=== PATIENT | female | born 1980 | race Hispanic/Latino ===

== ENCOUNTER 2018-02-14 02:23 | Emergency (ER) | payer OTHER, SELFPAY ==
[2018-02-14] VITALS (9 sets, daily range): BP systolic 104–143; BP diastolic 59–91; PULSE 98–125; RESP 16–20; TEMP 36.4–37.6; O2SAT 97–100; BMI 23.6
--- NOTE | 2018-02-14 02:37 | DI.CT.S_ITS ---
PROCEDURE: CT ABDOMEN PELVIS W CON INDICATIONS: Right lower quadrant Pain TECHNIQUE: After the administration of intravenous contrast, 5 mm thick sections acquired from the diaphragm to the symphysis. 5 mm coronal and sagittal reformats were acquired. For radiation dose reduction, the following was used: automated exposure control, adjustment of mA and/or kV according to patient size. COMPARISON: [facility], , US PELVIC COMPLETE, 02/14/2018, 5:18. FINDINGS: Image quality: Excellent. ABDOMEN: Lung bases: Lung bases are clear. Heart size is normal. Solid organs: Liver is normal in size and enhancement. Gallbladder is normal. Biliary system is non dilated. Pancreas enhances normally. Spleen is normal in size and enhancement. No adrenal nodules. Kidneys demonstrate normal size and enhancement, without hydronephrosis. Peritoneum and bowel: Bowel loops demonstrate normal wall thickness and caliber. Moderate amount of stool in colon. Appendix is normal. No free air. There is a small to moderate amount of free fluid. Nodes and vessels: No retroperitoneal or mesenteric adenopathy by size criteria. Aorta and inferior vena cava are normal in size. Miscellaneous: Tiny fat containing umbilical hernia is noted. PELVIS: Genitourinary: Bladder wall thickness is normal. Note is present within the uterus. Uterus is otherwise normal. A 1.5 x 1.9 cm cyst is noted in the left ovary. There is a moderate amount of free fluid in the cul-de-sac. Miscellaneous: No inguinal hernias or adenopathy. Bones: No suspicious bony lesions. No vertebral body compression fractures. IMPRESSION: 1. Normal appendix. 2. A 1.5 x 1.9 cm left ovarian cyst. There is small to moderate amount of free fluid in the cul-de-sac. The findings suggest ruptured ovarian cyst. 3. Tiny fat containing umbilical hernia. No significant discrepancy with the cnc machinist 2nd shift radiology preliminary report. Dictated by: Milton Aguiar M.D. on 02/14/2018 at 7:40 Approved by: Milton Aguiar M.D. on 02/14/2018 at 7:46
[2018-02-14 02:46] LABS: Pregnancy Test Serum,Qual Negative (Negative)
[2018-02-14 02:48] LABS: Lipase 87 U/L (23-300)
[2018-02-14 02:50] LABS: Add Manual Diff / Slide Review NO; Basophils Percent Auto 0.6 % (0-2); Eosinophils Percent Auto 0.6 % (2-4); Hematocrit 43.5 % (36-46); Hemoglobin 14.9 g/dL (12.0-16.0); Lymphocytes Percent Auto 15.5 % (25-40); Mean Corpuscular HGB Conc 34.2 % (30-36); Mean Corpuscular Hemoglobin 30.2 PG (26-34); Mean Corpuscular Volume 88.3 fL (80-100); Neutrophils Absolute Auto 8100 /uL (3000-5900); Neutrophils Percent Auto 81.3 % (50-75); Platelet Count 274 X10^3/uL (150-400); Red Blood Cell Count 4.92 X10^6/uL (4.0-5.2); Red Cell Distribution Width 14.1 % (11.6-14.8)
[2018-02-14 03:04] LABS: Alanine Aminotransferase 28 IU/L (9-52); Albumin 4.7 g/dL (3.5-5.0); Albumin Globulin Ratio 1.5 (1.0-2.8); Alkaline Phosphatase 62 U/L (38-126); Aspartate Aminotransferase 20 IU/L (14-36); BUN Creatinine Ratio 26.3 (6-22); Bilirubin Total 0.8 mg/dL (0.2-1.3); Blood Urea Nitrogen 21 mg/dL (7-17); Carbon Dioxide 22 mmol/L (22-32); Chloride 101 mmol/L (98-107); Estimated Glomerular Filt Rate > 60.0 mL/min (>60); Globulin 3.2 g/dL (1.7-4.1); Glucose 109 mg/dL (70-100); HEMOLYSIS < 15 (0-50); Potassium 4.1 mmol/L (3.4-5.1); Sodium 140 mmol/L (137-145); Total Protein 7.9 g/dL (6.3-8.2)
[2018-02-14] MEDS: SODIUM CHLORIDE 0.9% 1,000 ML 1000 ML IV (03:04)
[2018-02-14] MEDS: HYDROMORPHONE 0.5 MG INJ 1 MG IV ×2 (03:04→07:21)
[2018-02-14] MEDS: KETOROLAC 60 MG/2 ML VIAL 15 MG IV (03:07)
[2018-02-14] MEDS: HALOPERIDOL 5 MG/ML VIAL 1.5 MG IV (03:07)
[2018-02-14 03:39] LABS: Bacteria Urine None Seen; RBC Urine None Seen (0-5/HPF); WBC Urine None Seen (0-5/HPF)
[2018-02-14 03:46] LABS: Appearance Urine UA CLEAR; Bilirubin Urine UA NEGATIVE (NEGATIVE); Color Urine UA YELLOW; Glucose Urine UA NEGATIVE (Normal); Ketones Urine UA 2+ (NEGATIVE); Leukocyte Esterase Urine UA NEGATIVE (NEGATIVE); Nitrite Urine UA Negative (Negative); Occult Blood Urine UA NEGATIVE (Negative); Protein Urine UA NEGATIVE (Negative); Urobilinogen Urine UA 0.2 E.U./dL (0.2)
[2018-02-14 03:57] LABS: Culture Indicated Urine Cult Not Indicated; Urine Comments Microscopic Normal
--- NOTE | 2018-02-14 04:39 | DI.US.S_ITS ---
PROCEDURE: US PELVIC COMPLETE INDICATIONS: PAIN TECHNIQUE: Real-time scanning was performed of the pelvic organs, with image documentation. Additional endovaginal scanning was necessary due to incomplete visualization of the adnexal and endometrial structures by transabdominal scanning. COMPARISON: [facility], CT, CT ABDOMEN PELVIS W CON, 02/14/2018, 2:44. FINDINGS: Transabdominal scanning: Limited scanning through the kidneys shows no hydronephrosis. Small amount of free abdominal or pelvic fluid. Endovaginal scanning: Uterus: Uterus is normal in size at 8.5 x 4.2 x 4.9 cm. The endometrium is not visualized secondary to a presence of IUD. Ovaries: Right ovary is not visualized. The left ovary measures 4.5 x 2.5 x 5 cm. There is a 2.4 x 2.0 x 2.2 cm solid appearing mass with peripherally increased vascularity in the left ovary. IMPRESSION: 1. A 2.4 x 2.0 x 2.2 cm solid appearing mass demonstrating peripherally increased vascularity, probably a corpus pseudocyst. Followup ultrasound in 6 weeks is suggested. 2. There is a small amount of free fluid. 3. IUD in uterus. No significant discrepancy with the transit mechanic radiology preliminary report. Dictated by: Milton Aguiar M.D. on 02/14/2018 at 7:57 Approved by: Milton Aguiar M.D. on 02/14/2018 at 8:05
--- NOTE | 2018-02-14 06:53 | ED_ITS ---
HPI - Abdominal Pain General Chief Complaint: Abdominal Pain Stated Complaint: ABD Pain History of Present Illness HPI narrative: HPI 37-year-old female presents for evaluation of one day of periumbilical pain that is been gradually worsening, accompanied by anorexia for one half day, and is without identifiable provoking or relieving symptoms. Patient believes her pain began after she was straining to move the chicken coop or other yard items 2 days ago. Patient denies fever, chills, dysuria, continues pass flatus and stool at baseline. M/S/F/SocHx notable for: please see HPI; remainder reviewed with patient and in chart. ROS: Negative constitutional, eye, cardiovascular, pulmonary, GI, , MSK, skin , neurologic, psychiatric, endocrine unless noted in the HPI. Exam Gen: pleasant, uncomfortable appearing, intermittently crying out and tearful, loquacious. HEENT: NC, AT, PEERL, EOMI. Resp: Clear to auscultation bilaterally, normal work of breathing, no accessory muscle usage. Card: Regular rate and rhythm with no murmurs, rubs, or gallops, extremities warm and well perfused. GI: mild diffuse turns palpation, greatest at the umbilicus, mild to moderate right lower quadrant tenderness palpation, no rebound, no guarding. : No suprapubic tenderness to palpation. MSK: No visible deformities, strength and tone without visually appreciable deficit. Skin: Normal color with no visible lesions. Neuro: AO x 3, no facial asymmetry, vision and hearing WNL. Psych: Mood and affect appropriate. Labs / Imaging: WBC 10.0, Hb 14.9, sodium 140, potassium 4.1, total bilirubin 0.8, AST 20, ALT 20, ALT 62, lipase 87, negative hCG UA - 2+ ketones, negative nitrate, negative leukocyte esterase, no bacteria. CT abdomen/pelvis: there is a 2.3 cm cyst the left ovary with adjacent free fluid. There is an IUD in the uterus. TV US: only a single ovary identified which contains small follicles and what may be a collapsing corpus luteum. There is a trace amount of free fluid. It is unclear if this is the right ovary or if the patient is mistaken about having a right Oopherectomy. There is an IUD in the uterus. MDM Previous chart, nursing note, labs, imaging, and vitals reviewed. A: 37-year-old female presents for evaluation of one day of periumbilical pain that is been gradually worsening, accompanied by anorexia for one half day, and is without identifiable provoking or relieving symptoms. DDx: UTI, ureterolithiasis, pyelonephritis, appendicitis, biliary disease, pancreatitis, hemorrhagic ovarian cyst, ovarian torsion, ectopic . Evaluation: UA without evidence infection, negative hCG, imaging notable for a 2.3 cm cyst in the left ovary with adjacent free fluid. Strongly suspect hemorrhagic ovarian cyst. Torsion cannot be definitively excluded. Given the amount of the patient's discomfort transvaginal ultrasound was ordered, this was without evidence of torsion, there was a discrepancy noted between the lateral reality of the ovarian cyst between the CT and ultrasound, the patient' s case was discussed with the interpreting radiologist, Dr. Davenport, comment the images were reviewed and the cyst is felt to be on the left ovary and most likely hemorrhagic in nature. ED Course: hemodynamically stable. Disposition: discharge with [employer] follow-up for further review of the atypical description of her cyst, [place] Rx provided. Return to care precautions provided. Impression: cyst, likely hemorrhagic (please reference below for remainder of encounter information) Related Data Home Medications Medication Instructions Recorded Confirmed cholecalciferol (vitamin D3) 2,000 unit PO #0 04/12/17 [Vitamin D3] glucosamine sulfate [Gabrielle] 750 mg PO #0 04/12/17 melatonin 10 mg PO HS #0 10/09/17 Previous Rx's Medication Instructions Recorded Disabled Parking Permit ea #1 04/13/17 penicillin V potassium 500 mg PO BID #20 tab 10/30/17 azithromycin [Zithromax] 250 mg OR QDAY #1 pac 11/14/17 cyclobenzaprine 10 mg PO BIDP PRN #60 mg 01/17/18 ibuprofen 600 mg PO BIDP PRN #60 tab 01/17/18 Allergies Allergy/AdvReac Type Severity Reaction Status Date / Time bupivacaine Allergy Unknown asverse Unverified 11/22/17 12:39 [From EXPAREL (PF)] reaction morphine [MORPHINE] Allergy Unknown ITCHING Unverified 11/22/17 12:39 PFSH Surgical History Status post laminectomy (11/22/16) Family History Brother Age: 40 Mental health problem Grandfather Hypertension High cholesterol Grandfather Heart disease Exam Initial Vital Signs Initial Vital Signs: Vital Signs Temperature 97.6 F 02/14/18 02:29 Pulse Rate 98 H 02/14/18 02:29 Respiratory Rate 18 02/14/18 02:29 Blood Pressure 143/91 H 02/14/18 02:29 Pulse Oximetry 98 02/14/18 02:29 Course Orders Ordered: ED Orders 02/14/18 02:15 CMP [Comprehensive Metabolic Panel] Stat Complete Blood Count AUTO DIFF Stat Lipase Stat Test Serum,Qual Stat 02/14/18 02:37 CT abdomen pelvis w con Stat 02/14/18 03:29 Urinalysis and Microscopic Stat 02/14/18 04:39 US pelvic complete Stat Discontinued Medications Haloperidol (Haldol) 1.5 mg IV NOW ONE Stop: 02/14/18 02:37 Last Admin: 02/14/18 03:07 Dose: 1.5 mg Hydromorphone HCl (Dilaudid) 1 mg IV NOW ONE Stop: 02/14/18 02:37 Last Admin: 02/14/18 03:04 Dose: 1 mg Sodium Chloride (Normal Saline 0.9%) 1,000 mls @ 1,000 mls/hr IV BOLUS ONE Stop: 02/14/18 03:35 Last Infusion: 02/14/18 04:08 Dose: 0 mls/hr Admin: 02/14/18 03:04 Dose: 1,000 mls/hr Ketorolac Tromethamine (Toradol) 15 mg IV NOW ONE Stop: 02/14/18 02:37 Last Admin: 02/14/18 03:07 Dose: 15 mg Vital Signs - 8 hr 02/14/18 02:29 Temperature 97.6 F Pulse Rate 98 H Respiratory Rate 18 Blood Pressure 143/91 H Pulse Oximetry 98 MDM - Abdominal Pain Lab Data Result diagrams: 02/14/18 02:15 02/14/18 02:15 Lab Results 02/14/18 02/14/18 02/14/18 Range/Units 02:15 02:15 02:15 WBC 10.0 (4.5-11.0) X10^3/uL RBC 4.92 (4.0-5.2) X10^6/uL Hgb 14.9 (12.0-16.0) g/dL Hct 43.5 (36-46) % MCV 88.3 (80-100) fL MCH 30.2 (26-34) PG MCHC 34.2 (30-36) % RDW 14.1 (11.6-14.8) % Plt Count 274 (150-400) X10^3/uL Neut % (Auto) 81.3 H (50-75) % Lymph % (Auto) 15.5 L (25-40) % [place] % (Auto) 2.0 L (3-14) % Eos % (Auto) 0.6 L (2-4) % Baso % (Auto) 0.6 (0-2) % Neut # (Auto) 8100 H (1927-8163) /uL Sodium (137-145) mmol/L Potassium (3.4-5.1) mmol/L Chloride (98-107) mmol/L Carbon Dioxide (22-32) mmol/L BUN (7-17) mg/dL Creatinine (0.52-1.04) mg/dL Estimated GFR (>60) mL/min BUN/Creatinine Ratio (6-22) Glucose (70-100) mg/dL Calcium (8.4-10.2) mg/dL Total Bilirubin (0.2-1.3) mg/dL AST (14-36) IU/L ALT (9-52) IU/L Alkaline Phosphatase (38-126) U/L Total Protein (6.3-8.2) g/dL Albumin (3.5-5.0) g/dL Globulin (1.7-4.1) g/dL Albumin/Globulin Ratio (1.0-2.8) Lipase 87 (23-300) U/L Serum , Qual Negative (Negative) Urine Color Urine Appearance Urine pH (4.5-8.0) Ur Specific [place] (1.000-1.035) Urine Protein (Negative) Urine Glucose (UA) (Normal) g/dL Urine Ketones (NEGATIVE) Urine Occult Blood (Negative) Urine Nitrate (Negative) Urine Bilirubin (NEGATIVE) Urine Urobilinogen (0.2) E.U./dL Ur Leukocyte Esterase (NEGATIVE) Urine RBC (0-5/HPF) Urine WBC (0-5/HPF) Urine Bacteria (None) Ur Culture Indicated? Micro UA Comment 02/14/18 02/14/18 Range/Units 02:15 03:29 WBC (4.5-11.0) X10^3/uL RBC (4.0-5.2) X10^6/uL Hgb (12.0-16.0) g/dL Hct (36-46) % MCV (80-100) fL MCH (26-34) PG MCHC (30-36) % RDW (11.6-14.8) % Plt Count (150-400) X10^3/uL Neut % (Auto) (50-75) % Lymph % (Auto) (25-40) % [place] % (Auto) (3-14) % Eos % (Auto) (2-4) % Baso % (Auto) (0-2) % Neut # (Auto) (9231-4093) /uL Sodium 140 (137-145) mmol/L Potassium 4.1 (3.4-5.1) mmol/L Chloride 101 (98-107) mmol/L Carbon Dioxide 22 (22-32) mmol/L BUN 21 H (7-17) mg/dL Creatinine 0.80 (0.52-1.04) mg/dL Estimated GFR > 60.0 (>60) mL/min BUN/Creatinine Ratio 26.3 H (6-22) Glucose 109 H (70-100) mg/dL Calcium 10.0 (8.4-10.2) mg/dL Total Bilirubin 0.8 (0.2-1.3) mg/dL AST 20 (14-36) IU/L ALT 28 (9-52) IU/L Alkaline Phosphatase 62 (38-126) U/L Total Protein 7.9 (6.3-8.2) g/dL Albumin 4.7 (3.5-5.0) g/dL Globulin 3.2 (1.7-4.1) g/dL Albumin/Globulin Ratio 1.5 (1.0-2.8) Lipase (23-300) U/L Serum , Qual (Negative) Urine Color Yellow Urine Appearance Clear Urine pH 5.0 (4.5-8.0) Ur Specific [place] 1.010 (1.000-1.035) Urine Protein Negative (Negative) Urine Glucose (UA) Negative (Normal) g/dL Urine Ketones 2+ H (NEGATIVE) Urine Occult Blood Negative (Negative) Urine Nitrate Negative (Negative) Urine Bilirubin Negative (NEGATIVE) Urine Urobilinogen 0.2 (0.2) E.U./dL Ur Leukocyte Esterase Negative (NEGATIVE) Urine RBC None seen (0-5/HPF) Urine WBC None seen (0-5/HPF) Urine Bacteria None seen (None) Ur Culture Indicated? Cult not indicated Micro UA Comment Microscopic normal Discharge Plan Departure Prescriptions: No Action glucosamine sulfate [Gabrielle] 750 MG tablet 750 mg PO Qty: 0 RF: 0 cholecalciferol (vitamin D3) [Vitamin D3] 2,000 UNIT capsule 2,000 unit PO Qty: 0 RF: 0 Disabled Parking Permit Qty: 1 RF: 0 melatonin 10 MG capsule 10 mg PO HS Qty: 0 RF: 0 penicillin V potassium 500 MG tablet 500 mg PO BID Qty: 20 RF: 0 azithromycin [Zithromax] 250 MG tablet 250 mg OR QDAY Qty: 1 RF: 0 ibuprofen 600 mg tablet 600 mg PO BIDP PRNQty: 60 RF: 0 cyclobenzaprine 10 mg tablet 10 mg PO BIDP PRNQty: 60 RF: 1
[2018-02-14 07:22] LABS: Add Manual Diff / Slide Review NO; Basophils Percent Auto 0.3 % (0-2); Hematocrit 42.4 % (36-46); Hemoglobin 14.3 g/dL (12.0-16.0); Lymphocytes Percent Auto 7.8 % (25-40); Mean Corpuscular HGB Conc 33.8 % (30-36); Mean Corpuscular Hemoglobin 30.1 PG (26-34); Mean Corpuscular Volume 89.2 fL (80-100); Monocytes Percent Auto 1.3 % (3-14); Neutrophils Absolute Auto 7100 /uL (3000-5900); Neutrophils Percent Auto 90.6 % (50-75); Platelet Count 233 X10^3/uL (150-400); Red Blood Cell Count 4.75 X10^6/uL (4.0-5.2); Red Cell Distribution Width 14.1 % (11.6-14.8); White Blood Cell Count 7.8 X10^3/uL (4.5-11.0)
[2018-02-14] MEDS: ACETAMINOPHEN 325 MG TABLET 650 MG PO (08:40)
== END 2018-02-14 09:40 | disposition home or self-care (01) ==
PROVIDERS: Emergency Provider Emergency Medicine; Family Provider Family Medicine; PCP Family Medicine
DX: N83.202 Unspecified ovarian cyst, left side (principal)
CPT/HCPCS: 36415; 74177; 76830; 76856; 80053; 81001; 83690; 84703; 85025; 96361; 96374; 96375; 99283; 99285; J1170; J1630; J1885; Q9967

== ENCOUNTER 2018-04-09 09:45 | Outpatient (RCR) | payer OTHER, SELFPAY ==
--- NOTE | 2017-12-13 10:07 | PT.OTN ---
Current Diagnoses Pain in left knee (12/13/17) Difficulty in walking, not elsewhere classified (12/13/17) Weakness (12/13/17) On December 12, 2017 our therapy services consisting of Speech, Occupational, and Physical therapy transitioned from [employer] electronic documentation system to a new [employer] electronic system. All documentation prior to December 12 can be found under [employer] saved data. From December 12 forward, all medical record documentation will be in [email or web address].
--- NOTE | 2017-12-13 11:51 | PT.OTN ---
Current Diagnoses Pain in left knee (12/13/17) Difficulty in walking, not elsewhere classified (12/13/17) Weakness (12/13/17) Physical Therapy Treatment Note PT-OP-A Visit Information Start: 12/13/17 10:14 Freq: Status: Active Protocol: Activity Type Activity Date Activity User E-Sign Co-Sign Detail Recorded Client Recorded Date Recorded By Document 12/13/17 11:10 GGD [email or web address] 12/13/17 11:13 GGD 12/13/17 11:10 Out-Patient Physical Therapy Visit Information [Visit Information] -Visit Type Treatment Note -Visit Note 06/06 auth visit -Visit Start Time 10:25 -Visit Stop Time 11:20 -Total Visit Minutes 50 -Visit Number 10 -Number of CUT PRESSMAN Visits 1 [Evaluation Information] -Evaluation Date 10/25/17 PT-OP-C Subjective Start: 12/13/17 10:14 Freq: Status: Active Protocol: Activity Type Activity Date Activity User E-Sign Co-Sign Detail Recorded Client Recorded Date Recorded By Document 12/13/17 11:16 GGD [email or web address] 12/13/17 11:18 GGD 12/13/17 11:16 OP-PT Subjective [Patient Comments] -Patient Comments Patient states that she had a busy day of errands yesterday. She had increase in pain and need to use cane. Overall, her knee is doing better with less pain and did fatigue with increase in activity. -Patient Reported Progress Improving OP-PT Pain Assessment [Pain Assessment Grid] -Paper Pain Assessment Grid Completed No [Location] Bilateral -Pain Location Details Lumbar spine -Intensity 4 -Scale Used Numeric (1 - 10 ) -Description Aching -Pain Aggravating Factors Activity -Pain Alleviating Factors Cold PT-OP-Q Treatments Start: 12/13/17 10:14 Freq: Status: Active Protocol: Activity Type Activity Date Activity User E-Sign Co-Sign Detail Recorded Client Recorded Date Recorded By Document 12/13/17 11:37 GGD [email or web address] 12/13/17 11:51 GGD 12/13/17 11:37 Cardio Equipment [Bicycle (Upright)] -Duration (Minutes) 10 -Resistance 7 Gym Equipment [Shuttle Recovery] Unilateral Heel Raises -Resistance 25# -Shuttle Recovery Platform Stable -Reps/Time 2 x 5 Bilateral Heel Raises -Resistance 37# -Shuttle Recovery Platform Stable -Reps/Time 10 Unilateral Squats -Resistance 50# -Shuttle Recovery Platform Stable -Reps/Time 15 Bilateral Squats -Resistance 50# -Shuttle Recovery Platform Stable -Reps/Time 15 Therapeutic Exercises [Supine Exercises] 1 -Supine Exercise Name Flexion SLR -Side bilateral -Resistance 1# -Equipment Used ankle weight -Reps/Minutes 10 [Prone Exercises] 1 -Prone Exercise Name Hip extension -Side bilateral -Resistance 1# -Equipment Used Ankle weight -Reps/Minutes 10 -Comments with pillow under hips [Sidelying Exercises] 2 -Sidelying Exercise Name Hip Adduction -Side bilateral -Resistance 1# -Equipment Used ankle weight -Reps/Minutes 10 1 -Sidelying Exercise Name hip Abduction -Side bilateral -Resistance 1# -Equipment Used ankle weight -Reps/Minutes 10 PT-OP-R Modalities Start: 12/13/17 10:14 Freq: Status: Active Protocol: Activity Type Activity Date Activity User E-Sign Co-Sign Detail Recorded Client Recorded Date Recorded By Document 12/13/17 11:37 GGD [email or web address] 12/13/17 11:51 GGD 12/13/17 11:37 Hot Pack/Cold Pack [Treatment] Cold Pack -Location Left knee and L /S -Patient Position Hooklying -Treatment Duration (minutes) 10 -Patient Tolerance Good PT-OP-T Assessment and Plan Start: 12/13/17 10:14 Freq: Status: Active Protocol: Activity Type Activity Date Activity User E-Sign Co-Sign Detail Recorded Client Recorded Date Recorded By Document 12/13/17 11:37 GGD [email or web address] 12/13/17 11:51 GGD 12/13/17 11:37 Physical Therapy Assessment [Assessment Summary] -Assessment Pt improving with flexion strength and exercise tolerance. She fatigued quickly with calf raise and hip abduction and need cues for technique. Physical Therapy Plan [Frequency and Duration] -Frequency of Treatment 2x/Week -Duration of Treatment 3 months -Plan of Care Start Date 11/25/17 -Plan of Care End Date 01/22/18 [Next Visit Focus/Plan] -Next Visit Plan Progression under current plan. Tape of left knee with kinesiotape as needed, progress hip strengthening.
--- NOTE | 2017-12-21 16:26 | PT.OTN ---
Current Diagnoses Pain in left knee (12/21/17) Difficulty in walking, not elsewhere classified (12/21/17) Weakness (12/21/17) Physical Therapy Treatment Note PT-OP-A Visit Information Start: 12/13/17 10:14 Freq: Status: Active Protocol: Document 12/21/17 16:19 SAK (Rec: 12/21/17 16:26 SAK [id number]) Out-Patient Physical Therapy Visit Information Visit Information Visit Type Treatment Note Visit Note 07/07 auth visit Visit Start Time 10:25 Visit Stop Time 11:20 Total Visit Minutes 45 Visit Number 11 Number of BUSINESS OPERATIONS COORDINATOR Visits 0 PT-OP-C Subjective Start: 12/13/17 10:14 Freq: Status: Active Protocol: Document 12/21/17 14:36 SAK (Rec: 12/21/17 14:55 SAK [id number]) OP-PT Subjective Patient Comments Patient Comments Saw cco & president Dr. Stewart, recomended modified AFO; received 2 days ago. Recommended EMG be done by Dr. Stewart 12/14/17), cancel appointments in [place]. Has follow-up with neurology . Wore AFO a little, helps with walking though hurts heel . PT-OP-Q Treatments Start: 12/13/17 10:14 Freq: Status: Active Protocol: Document 12/21/17 14:56 SAK (Rec: 12/21/17 15:14 SAK [id number]) Cardio Equipment Bicycle (Upright) Duration (Minutes) 10 Resistance 7 Gym Equipment Shuttle Recovery Unilateral Heel Raises Resistance 25# Shuttle Recovery Platform Stable Reps/Time 2 x 5 Bilateral Heel Raises Resistance 37# Shuttle Recovery Platform Stable Reps/Time 10 Unilateral Squats Resistance 50# Shuttle Recovery Platform Stable Reps/Time 15 Bilateral Squats Resistance 62 Shuttle Recovery Platform Stable Reps/Time 15 PT-OP-R Modalities Start: 12/13/17 10:14 Freq: Status: Active Protocol: Document 12/13/17 11:37 GGD (Rec: 12/13/17 11:51 GGD [email or web address]) Hot Pack/Cold Pack Treatment Cold Pack Location Left knee and L/S Patient Position Hooklying Treatment Duration (minutes) 10 Patient Tolerance Good PT-OP-T Assessment and Plan Start: 12/13/17 10:14 Freq: Status: Active Protocol: Document 12/21/17 16:19 SAK (Rec: 12/21/17 16:26 [facility] [id number]) Physical Therapy Assessment Assessment Summary Assessment Patient demonstrated improved gait with new AFO. Instructed her in a wearing schedule and encouraged her to contact quarantine officer if heel pain worsens or she notices any skin breakdown. Physical Therapy Plan Frequency and Duration Frequency of Treatment 2x/Week Duration of Treatment 3 months Plan of Care Start Date 10/25/17 Plan of Care End Date 01/22/18 Next Visit Focus/Plan Next Visit Plan Continue to progress with ther ex as tolerated for strengthening and pain management. (no kinesiotape today due to patient reporting minimal knee pain).
--- NOTE | 2017-12-26 11:28 | PT.OTN ---
Current Diagnoses Pain in left knee (12/26/17) Difficulty in walking, not elsewhere classified (12/26/17) Weakness (12/26/17) Physical Therapy Treatment Note PT-OP-A Visit Information Start: 12/13/17 10:14 Freq: Status: Active Protocol: Document 12/26/17 10:31 SAK (Rec: 12/26/17 11:16 [facility] [id number]) Out-Patient Physical Therapy Visit Information Visit Information Visit Type Treatment Note Visit Note 08/06 [facility] Visit Start Time 10:25 Visit Stop Time 11:20 Total Visit Minutes 45 Visit Number 12 Evaluation Information Evaluation Date 10/25/17 PT-OP-C Subjective Start: 12/13/17 10:14 Freq: Status: Active Protocol: Document 12/26/17 10:31 SAK (Rec: 12/26/17 11:16 [facility] [id number]) OP-PT Subjective Patient Comments Patient Comments Pain much less wearing AFO in hip back, and knees. Longest wear time so far 3 hours at a time; heel very tender but silicone sleeve helpful. Has just started driving with AFO on just in town, not highway driving. sees Neurologist 01/03. PT-OP-Q Treatments Start: 12/13/17 10:14 Freq: Status: Active Protocol: Document 12/26/17 10:31 SAK (Rec: 12/26/17 11:16 [facility] [id number]) Cardio Equipment Bicycle (Upright) Duration (Minutes) 10 Resistance 7 Gym Equipment Shuttle Recovery Unilateral Heel Raises Resistance 25# Shuttle Recovery Platform Stable Reps/Time 2 x 5 Bilateral Heel Raises Resistance 37# Shuttle Recovery Platform Stable Reps/Time 10 Unilateral Squats Resistance 50# Shuttle Recovery Platform Stable Reps/Time 15 Bilateral Squats Resistance 62 Shuttle Recovery Platform Stable Reps/Time 15 Shuttle Balance 1 Details bal and weight shift Reps/Duration 10 min Comments front/back, side to side Therapeutic Exercises Sitting Exercises 1 Sitting Exercise Name Baps board Side right Equipment Used Baps Reps/Minutes 10 ea direction Standing Exercises 1 Standing Exercise Name RAMÓN Plascencia Neuro Re-Education Treatment Balance Activities 1 Details SLS, tandem stand, tandem walk Surface level Reps/Duration 6 min Comments no AFO PT-OP-R Modalities Start: 12/13/17 10:14 Freq: Status: Active Protocol: Document 12/13/17 11:37 GGD (Rec: 12/13/17 11:51 GGD [email or web address]) Hot Pack/Cold Pack Treatment Cold Pack Location Left knee and L/S Patient Position Hooklying Treatment Duration (minutes) 10 Patient Tolerance Good PT-OP-T Assessment and Plan Start: 12/13/17 10:14 Freq: Status: Active Protocol: Document 12/26/17 11:25 SAK (Rec: 12/26/17 11:28 SAK [id number]) Physical Therapy Assessment Assessment Summary Assessment Pain significantly decreased with use of AFO. Able to progress with standing balance activities. Muscle atrophy still present between metatarsals with continued curling of toes with functional standing plantarflexion with gait. Physical Therapy Plan Frequency and Duration Frequency of Treatment 2x/Week Duration of Treatment 3 months Plan of Care Start Date 10/25/17 Plan of Care End Date 01/22/18 Next Visit Focus/Plan Next Visit Plan Transition toward discharge over the next couple weeks pending recommendations of neurologist visit 01/03/18.
--- NOTE | 2018-01-02 14:16 | PT.OTN ---
Current Diagnoses Pain in left knee (01/02/18) Difficulty in walking, not elsewhere classified (01/02/18) Weakness (01/02/18) Physical Therapy Treatment Note PT-OP-A Visit Information Start: 12/13/17 10:14 Freq: Status: Active Protocol: Document 01/02/18 10:37 SAK (Rec: 01/02/18 14:12 SAK [id number]) Out-Patient Physical Therapy Visit Information Visit Information Visit Type Treatment Note Visit Note Visit Start Time 11:00 Visit Stop Time 11:45 Total Visit Minutes 45 Visit Number 13 Number of LAYER OFF Visits 0 PT-OP-C Subjective Start: 12/13/17 10:14 Freq: Status: Active Protocol: Document 01/02/18 10:37 SAK (Rec: 01/02/18 11:08 SAK [id number]) OP-PT Subjective Patient Comments Patient Comments Overall better but had some some stabbing pain after taking longest walk she has taken (25 min) medial joint lline PT-OP-Q Treatments Start: 12/13/17 10:14 Freq: Status: Active Protocol: Document 01/02/18 10:37 SAK (Rec: 01/02/18 11:08 SAK [id number]) Cardio Equipment Elliptical Duration (Minutes) 5 Resistance 1.0 Bicycle (Upright) Duration (Minutes) 10 Resistance 7 Gym Equipment Shuttle Recovery Unilateral Heel Raises Resistance 25# Shuttle Recovery Platform Stable Reps/Time 2 x 5 Bilateral Heel Raises Resistance 37# Shuttle Recovery Platform Stable Reps/Time 10 Unilateral Squats Resistance 50# Shuttle Recovery Platform Stable Reps/Time 15 Bilateral Squats Resistance 62 Shuttle Recovery Platform Stable Reps/Time 15 Shuttle Balance 1 Details bal and weight shift Reps/Duration 10 min Comments front/back, side to side Therapeutic Exercises Sitting Exercises 2 Sitting Exercise Name hamstring curl Side bilateral Resistance 30 Comments 20# unilateral 1 Sitting Exercise Name Baps board Side right Equipment Used Baps Reps/Minutes 10 ea direction Standing Exercises 2 Standing Exercise Name quad stretch Reps/Minutes 3 1 Standing Exercise Name BOSU lunge, BOSU bal PT-OP-R Modalities Start: 12/13/17 10:14 Freq: Status: Active Protocol: Document 12/13/17 11:37 GGD (Rec: 12/13/17 11:51 GGD [email or web address]) Hot Pack/Cold Pack Treatment Cold Pack Location Left knee and L/S Patient Position Hooklying Treatment Duration (minutes) 10 Patient Tolerance Good PT-OP-T Assessment and Plan Start: 12/13/17 10:14 Freq: Status: Active Protocol: Document 01/02/18 10:37 ALEX (Rec: 01/02/18 14:12 ALEX [id number]) Physical Therapy Assessment Assessment Summary Assessment Improving activity tolerance. Patient self-taped knee with good results over weekend so no taping by PT required. Moving toward discharge; has 1 further PT visit left pending results of appointment with neurologist tomorrow Physical Therapy Plan Frequency and Duration Frequency of Treatment 2x/Week Duration of Treatment 3 months Plan of Care Start Date 10/25/17 Plan of Care End Date 01/22/18 Next Visit Focus/Plan Next Visit Plan Transition toward discharge over the next couple weeks pending recommendations of neurologist visit 01/03/18. Please Sign and Return: I have reviewed this Plan of Care and certify that the skilled therapy services above are required to meet the patient???s needs. Physician Signature Date Printed Name and Credentials Clinical Instructor Signature Printed Name and Credentials
--- NOTE | 2018-01-10 17:13 | PT.OTN ---
Current Diagnoses Pain in right hip (01/09/18) Pain in left knee (01/09/18) Difficulty in walking, not elsewhere classified (01/09/18) Weakness (01/09/18) Physical Therapy Treatment Note PT-OP-A Visit Information Start: 12/13/17 10:14 Freq: Status: Active Protocol: Document 01/09/18 10:33 SAK (Rec: 01/10/18 16:40 SAK [id number]) Out-Patient Physical Therapy Visit Information Visit Information Visit Type Treatment Note Visit Note Visit Start Time 10:30 Visit Stop Time 11:15 Total Visit Minutes 45 Visit Number 14 Number of CAREER MANAGER Visits 0 Evaluation Information Evaluation Date 10/25/17 PT-OP-B Current Condition Start: 12/13/17 10:14 Freq: Status: Active Protocol: Document 01/09/18 10:33 SAK (Rec: 01/10/18 16:55 SAK [id number]) Current Condition History of Current Condition Onset Date 11/22/16 Current Complaints left knee pain due to compensation from right LE weakness History of Current Condition Patient underwent L45 laminectomy, microdiscectomy and decompression by Dr. Correa 11/28/17, with subsequent right LE weakness, atrophy, gait dysfunction. Post-op PT previously This round of PT (14 visits so far) has focused on left knee pain from compensatory movements due to right LE weakness. Now with minimal left knee pain especially after obtaining AFO for right LE ordered by Dr. Stewart. Patient also experiences pain in the sole of the foot with gait, wears gelt pad right foot. New order received from Dr. Stewart due to new c/o right sided hip/buttock pain. Patient has recently increased her walking and overall activity level due to improved gait with use of AFO but now is c/o above pain. Pain is worse without AFO and patient c/o concern she may always have to wear the AFO and this is very upsetting to her. 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 Future Testing and Treatments Planned Felicita Rice DO ordered an MRI lumbar sacral plexus with and without contrast scheduled for 01/14/18. PT-OP-C Subjective Start: 12/13/17 10:14 Freq: Status: Active Protocol: Document 01/09/18 10:33 SAK (Rec: 01/09/18 12:04 [facility] [id number]) OP-PT Subjective Patient Comments Patient Comments 5 days of right sided confusing pain, hurts even at night. Better with brace on, worse when off. Walking a lot more since getting AFO 2 1 /[address] Stewart this am gave new orders for PT . Neurologist also recommended continue PT; evaluated as localized problem at S1 and has ordered MRI of lumbar sacral plexus to r/o any other issue. OP-PT Pain Assessment Pain Assessment Grid Paper Pain Assessment Grid Completed No Location Bilateral Pain Location Details posterolateral right hip/ buttock Intensity 6 Scale Used Numeric (1 - 10) Description Aching Frequency Constant PT-OP-M Strength Start: 01/09/18 16:26 Freq: Status: Active Protocol: Document 01/09/18 10:33 [facility] (Rec: 01/09/18 16:42 [facility] [id number]) Hip Strength Hip Manual Muscle Testing Right Flexion (L2) 4+ Good+ Extension (S1) 4- Good- Abduction 4- Good- External Rotation 4 Good Internal Rotation 4+ Good+ Left Flexion (L2) 4+ Good+ Extension (S1) 4 Good Abduction 4 Good External Rotation 4 Good Internal Rotation 4+ Good+ Knee Strength Knee Manual Muscle Testing Right Flexion (S2) 4+ Good+ Extension (L3) 4 Good Left Flexion (S2) 4+ Good+ Extension (L3) 4+ Good+ Ankle/Foot Strength Ankle and Foot Manual Muscle Testing Right Dorsiflexion (L4) 3+ Fair+ Plantarflexion (S1) 3+ Fair+ Left Dorsiflexion (L4) 5 Normal Plantarflexion (S1) 4+ Good+ PT-OP-Q Treatments Start: 12/13/17 10:14 Freq: Status: Active Protocol: Document 01/09/18 10:33 [facility] (Rec: 01/10/18 16:57 [facility] [id number]) Cardio Equipment Bicycle (Upright) Duration (Minutes) 10 Resistance 7 Manual Therapy Treatment Soft Tissue Mobilization 1 Body Location right IT band, glut med, piriformis Mobilization Type Strumming Trigger Point Release Intensity/Depth Moderate Body Position Sidelying Other Other Manual Treatments Assessment of right hip/ buttock pain Self-Care/Home Management Treatment Education Other Education Increased focus on hip flexibility, SLS, gait without compensation Activities Self-Care/Home Management Activities use of heat and ice PRN, decrease walking amount PT-OP-R Modalities Start: 12/13/17 10:14 Freq: Status: Active Protocol: Document 01/09/18 10:33 ALEX (Rec: 01/10/18 17:01 SAK [id number]) Hot Pack/Cold Pack Treatment Hot Pack Location right hip/buttock Patient Position Sidelying Treatment Duration (minutes) 15 Patient Tolerance Good Ultrasound Therapy Treatment Right Posterior Lateral Hip Treatment Duration (minutes) 8 Patient Position Sidelying Coupling Medium Ultrasound Gel Frequency Setting (mHz) 1 Mode Setting Continuous Intensity Setting (w/cm2) 1.4 Patient Tolerance Good PT-OP-T Assessment and Plan Start: 12/13/17 10:14 Freq: Status: Active Protocol: Document 01/09/18 10:33 ALEX (Rec: 01/10/18 17:10 [facility] [id number]) Physical Therapy Assessment Rehab Potential Rehabilitation Potential Good Impairments Impairments Activity Tolerance Gait Pain ROM Strength Goals Three Impairment weakness Short Term Goal (STG) Improve Kizzy's LE strength by 1/2 grade throughout to improve her gait quality and improve her activity tolerance STG Duration 4 wks Mcc Goal (LTG) Kizzy to be independent with HEP and aquatic exercise program for long-term fitness and pain management One Impairment gait dysfunction Short Term Goal (STG) Kizzy will be able to ambulate with 30% reduction in her compensatory movements STG Duration 4 wks Mcc Goal (LTG) Kizzy will be able to ambulate with minimal to no limp with AFO LTG Duration 8 wks Two Impairment pain limiting activity Short Term Goal (STG) Kizzy will report 50% reduction in her right hip pain with usual activities STG Duration 4 weeks Log Cutter Goal (LTG) Kizzy will be able to resume usual activities including recently increased activity level with minimal to no pain LTG Duration 8 wks Assessment Summary Assessment New onset right-sided hip pain appears to be a result of recently increased activity level due to improved stability with gait with new AFO. Despite improved gait quality Kizzy does still have some compensatory movements in her gait and with increased activity level feel she is experiencing musculoskeletal strain and pain. Would benefit from PT with emphasis on flexibility and strengthening right hip and core and pain management techniques to include ultrasound, heat, manual techniques. Physical Therapy Plan Frequency and Duration Frequency of Treatment 2x/Week Duration of Treatment 8 wks Plan of Care Start Date 01/09/18 Plan of Care End Date 03/11/18 Therapeutic Interventions Therapeutic Interventions Aquatic Therapy Home Exercise Program Manual Therapy Neuromuscular Re-education Patient/Caregiver Education Self-Care/Home Management Therapeutic Activities Therapeutic Exercises Modalities Cold Pack/Ice Massage Hot Packs Ultrasound Next Visit Focus/Plan Next Note Type Treatment Note Next Visit Plan Assess response to last treatment and activity modifications and progress as indicated. Please Sign and Return: I have reviewed this Plan of Care and certify that the skilled therapy services above are required to meet the patient???s needs. Physician Signature Date Printed Name and Credentials Clinical Instructor Signature Printed Name and Credentials
--- NOTE | 2018-01-12 09:36 | PT.OTRE ---
Current Diagnoses Pain in right hip (01/09/18) Pain in left knee (01/09/18) Difficulty in walking, not elsewhere classified (01/09/18) Weakness (01/09/18) Surgical History Status post laminectomy (11/22/16) Provider Visit Care Team Role Provider Type Tayler Chavarria DO Attending Provider Physician Family Provider Primary Care Provider Specialty: Family Practice Address: [address] [place] [address], [facility] Email: [email or web address] Physical Therapy Re-Evaluation PT-OP-A Visit Information Start: 12/13/17 10:14 Freq: Status: Active Protocol: Document 01/09/18 10:33 SAK (Rec: 01/10/18 16:40 SAK [id number]) Out-Patient Physical Therapy Visit Information Visit Information Visit Type Treatment Note Visit Note Visit Start Time 10:30 Visit Stop Time 11:15 Total Visit Minutes 45 Visit Number 14 Number of EMERGENCY DEPARTMENT DIRECTOR Visits 0 Evaluation Information Evaluation Date 10/25/17 PT-OP-B Current Condition Start: 12/13/17 10:14 Freq: Status: Active Protocol: Document 01/09/18 10:33 SAK (Rec: 01/10/18 16:55 SAK [id number]) Current Condition History of Current Condition Onset Date 11/22/16 Current Complaints left knee pain due to compensation from right LE weakness History of Current Condition Patient underwent L45 laminectomy, microdiscectomy and decompression by Dr. Correa 11/28/17, with subsequent right LE weakness, atrophy, gait dysfunction. Post-op PT previously This round of PT (14 visits so far) has focused on left knee pain from compensatory movements due to right LE weakness. Now with minimal left knee pain especially after obtaining AFO for right LE ordered by Dr. Stewart. Patient also experiences pain in the sole of the foot with gait, wears gelt pad right foot. New order received from Dr. Stewart due to new c/o right sided hip/buttock pain. Patient has recently increased her walking and overall activity level due to improved gait with use of AFO but now is c/o above pain. Pain is worse without AFO and patient c/o concern she may always have to wear the AFO and this is very upsetting to her. 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 Future Testing and Treatments Planned Felicita Rice DO ordered an MRI lumbar sacral plexus with and without contrast scheduled for 01/14/18. PT-OP-C Subjective Start: 12/13/17 10:14 Freq: Status: Active Protocol: Document 01/09/18 10:33 SAK (Rec: 01/09/18 12:04 SAK [id number]) OP-PT Subjective Patient Comments Patient Comments 5 days of right sided confusing pain, hurts even at night. Better with brace on, worse when off. Walking a lot more since getting AFO 2 1 /[address] Stewart this am gave new orders for PT . Neurologist also recommended continue PT; evaluated as localized problem at S1 and has ordered MRI of lumbar sacral plexus to r/o any other issue. OP-PT Pain Assessment Pain Assessment Grid Paper Pain Assessment Grid Completed No Location Bilateral Pain Location Details posterolateral right hip/ buttock Intensity 6 Scale Used Numeric (1 - 10) Description Aching Frequency Constant PT-OP-M Strength Start: 01/09/18 16:26 Freq: Status: Active Protocol: Document 01/09/18 10:33 SAK (Rec: 01/09/18 16:42 SAK [id number]) Hip Strength Hip Manual Muscle Testing Right Flexion (L2) 4+ Good+ Extension (S1) 4- Good- Abduction 4- Good- External Rotation 4 Good Internal Rotation 4+ Good+ Left Flexion (L2) 4+ Good+ Extension (S1) 4 Good Abduction 4 Good External Rotation 4 Good Internal Rotation 4+ Good+ Knee Strength Knee Manual Muscle Testing Right Flexion (S2) 4+ Good+ Extension (L3) 4 Good Left Flexion (S2) 4+ Good+ Extension (L3) 4+ Good+ Ankle/Foot Strength Ankle and Foot Manual Muscle Testing Right Dorsiflexion (L4) 3+ Fair+ Plantarflexion (S1) 3+ Fair+ Left Dorsiflexion (L4) 5 Normal Plantarflexion (S1) 4+ Good+ PT-OP-Q Treatments Start: 12/13/17 10:14 Freq: Status: Active Protocol: Document 01/09/18 10:33 SAK (Rec: 01/10/18 16:57 SAK [id number]) Cardio Equipment Bicycle (Upright) Duration (Minutes) 10 Resistance 7 Manual Therapy Treatment Soft Tissue Mobilization 1 Body Location right IT band, glut med, piriformis Mobilization Type Strumming Trigger Point Release Intensity/Depth Moderate Body Position Sidelying Other Other Manual Treatments Assessment of right hip/ buttock pain Self-Care/Home Management Treatment Education Other Education Increased focus on hip flexibility, SLS, gait without compensation Activities Self-Care/Home Management Activities use of heat and ice PRN, decrease walking amount PT-OP-R Modalities Start: 12/13/17 10:14 Freq: Status: Active Protocol: Document 01/09/18 10:33 [facility] (Rec: 01/10/18 17:01 [facility] [id number]) Hot Pack/Cold Pack Treatment Hot Pack Location right hip/buttock Patient Position Sidelying Treatment Duration (minutes) 15 Patient Tolerance Good Ultrasound Therapy Treatment Right Posterior Lateral Hip Treatment Duration (minutes) 8 Patient Position Sidelying Coupling Medium Ultrasound Gel Frequency Setting (mHz) 1 Mode Setting Continuous Intensity Setting (w/cm2) 1.4 Patient Tolerance Good PT-OP-T Assessment and Plan Start: 12/13/17 10:14 Freq: Status: Active Protocol: Document 01/09/18 10:33 [facility] (Rec: 01/10/18 17:10 [facility] [id number]) Physical Therapy Assessment Rehab Potential Rehabilitation Potential Good Impairments Impairments Activity Tolerance Gait Pain ROM Strength Goals Three Impairment weakness Short Term Goal (STG) Improve Kizzy's LE strength by 1/2 grade throughout to improve her gait quality and improve her activity tolerance STG Duration 4 wks Director Of Nurses Registry Goal (LTG) Kizzy to be independent with HEP and aquatic exercise program for long-term fitness and pain management One Impairment gait dysfunction Short Term Goal (STG) Kizzy will be able to ambulate with 30% reduction in her compensatory movements STG Duration 4 wks Half-Way Goal (LTG) Kizzy will be able to ambulate with minimal to no limp with AFO LTG Duration 8 wks Two Impairment pain limiting activity Short Term Goal (STG) Kizzy will report 50% reduction in her right hip pain with usual activities STG Duration 4 weeks Director Of Nurses Registry Goal (LTG) Kizzy will be able to resume usual activities including recently increased activity level with minimal to no pain LTG Duration 8 wks Assessment Summary Assessment New onset right-sided hip pain appears to be a result of recently increased activity level due to improved stability with gait with new AFO. Despite improved gait quality Kizzy does still have some compensatory movements in her gait and with increased activity level feel she is experiencing musculoskeletal strain and pain. Would benefit from PT with emphasis on flexibility and strengthening right hip and core and pain management techniques to include ultrasound, heat, manual techniques. Physical Therapy Plan Frequency and Duration Frequency of Treatment 2x/Week Duration of Treatment 8 wks Plan of Care Start Date 01/09/18 Plan of Care End Date 03/11/18 Therapeutic Interventions Therapeutic Interventions Aquatic Therapy Home Exercise Program Manual Therapy Neuromuscular Re-education Patient/Caregiver Education Self-Care/Home Management Therapeutic Activities Therapeutic Exercises Modalities Cold Pack/Ice Massage Hot Packs Ultrasound Next Visit Focus/Plan Next Note Type Treatment Note Next Visit Plan Assess response to last treatment and activity modifications and progress as indicated. Please Sign and Return: I have reviewed this Plan of Care and certify that the skilled therapy services above are required to meet the patient?s needs. Physician Signature Date Printed Name and Credentials Clinical Instructor Signature Printed Name and Credentials
--- NOTE | 2018-01-15 15:55 | PT.OTN ---
Current Diagnoses Pain in right hip (01/15/18) Pain in left knee (01/15/18) Difficulty in walking, not elsewhere classified (01/15/18) Weakness (01/15/18) Physical Therapy Treatment Note PT-OP-A Visit Information Start: 12/13/17 10:14 Freq: Status: Active Protocol: Document 01/15/18 09:45 AMB (Rec: 01/15/18 11:00 AMB [id number]) Out-Patient Physical Therapy Visit Information Visit Information Visit Type Treatment Note Visit Note Visit Start Time 09:45 Visit Stop Time 10:30 Total Visit Minutes 45 Visit Number 15 Number of PROGRAM DIRECTOR SCOUTING Visits 0 Evaluation Information Evaluation Date 10/25/17 PT-OP-B Current Condition Start: 12/13/17 10:14 Freq: Status: Active Protocol: Document 01/09/18 10:33 SAK (Rec: 01/10/18 16:55 SAK [id number]) Current Condition History of Current Condition Onset Date 11/22/16 Current Complaints left knee pain due to compensation from right LE weakness History of Current Condition Patient underwent L45 laminectomy, microdiscectomy and decompression by Dr. Correa 11/28/17, with subsequent right LE weakness, atrophy, gait dysfunction. Post-op PT previously This round of PT (14 visits so far) has focused on left knee pain from compensatory movements due to right LE weakness. Now with minimal left knee pain especially after obtaining AFO for right LE ordered by Dr. Stewart. Patient also experiences pain in the sole of the foot with gait, wears gelt pad right foot. New order received from Dr. Stewart due to new c/o right sided hip/buttock pain. Patient has recently increased her walking and overall activity level due to improved gait with use of AFO but now is c/o above pain. Pain is worse without AFO and patient c/o concern she may always have to wear the AFO and this is very upsetting to her. 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 Future Testing and Treatments Planned Felicita Rice DO ordered an MRI lumbar sacral plexus with and without contrast scheduled for 01/14/18. PT-OP-C Subjective Start: 12/13/17 10:14 Freq: Status: Active Protocol: Document 01/15/18 09:45 AMB (Rec: 01/15/18 11:00 AMB [id number]) OP-PT Subjective Patient Comments Patient Comments 13 days of pain. Monday evening, pain got so bad she spent the evening in bed. 4/ 10 pain with AFO, 6/10 without . 8/10 on Monday night. PT-OP-M Strength Start: 01/09/18 16:26 Freq: Status: Active Protocol: Document 01/09/18 10:33 SAK (Rec: 01/09/18 16:42 SAK [id number]) Hip Strength Hip Manual Muscle Testing Right Flexion (L2) 4+ Good+ Extension (S1) 4- Good- Abduction 4- Good- External Rotation 4 Good Internal Rotation 4+ Good+ Left Flexion (L2) 4+ Good+ Extension (S1) 4 Good Abduction 4 Good External Rotation 4 Good Internal Rotation 4+ Good+ Knee Strength Knee Manual Muscle Testing Right Flexion (S2) 4+ Good+ Extension (L3) 4 Good Left Flexion (S2) 4+ Good+ Extension (L3) 4+ Good+ Ankle/Foot Strength Ankle and Foot Manual Muscle Testing Right Dorsiflexion (L4) 3+ Fair+ Plantarflexion (S1) 3+ Fair+ Left Dorsiflexion (L4) 5 Normal Plantarflexion (S1) 4+ Good+ PT-OP-Q Treatments Start: 12/13/17 10:14 Freq: Status: Active Protocol: Document 01/15/18 09:45 AMB (Rec: 01/15/18 15:53 AMB [id number]) Cardio Equipment Bicycle (Upright) Duration (Minutes) 6 Resistance 7 Therapeutic Exercises Supine Exercises 2 Supine Exercise Name 90-90 hip flex isometric Comments increased R hip pain Prone Exercises 2 Prone Exercise Name quadruped hip ext Side right Reps/Minutes 1x10 Sidelying Exercises 4 Sidelying Exercise Name hip abduction Reps/Minutes 2x10 3 Sidelying Exercise Name QL stretch Side right Reps/Minutes 30x3 Gait Training Gait Activity 1 Description attention to limp Comments orthotic in L shoe so AFO doesn't make R leg so high. Manual Therapy Treatment Soft Tissue Mobilization 1 Body Location right IT band, glut med, piriformis Mobilization Type Strumming Trigger Point Release Intensity/Depth Moderate Body Position Sidelying PT-OP-R Modalities Start: 12/13/17 10:14 Freq: Status: Active Protocol: Document 01/09/18 10:33 SAK (Rec: 01/10/18 17:01 [facility] [id number]) Hot Pack/Cold Pack Treatment Hot Pack Location right hip/buttock Patient Position Sidelying Treatment Duration (minutes) 15 Patient Tolerance Good Ultrasound Therapy Treatment Right Posterior Lateral Hip Treatment Duration (minutes) 8 Patient Position Sidelying Coupling Medium Ultrasound Gel Frequency Setting (mHz) 1 Mode Setting Continuous Intensity Setting (w/cm2) 1.4 Patient Tolerance Good PT-OP-T Assessment and Plan Start: 12/13/17 10:14 Freq: Status: Active Protocol: Document 01/15/18 09:45 AMB (Rec: 01/15/18 15:53 AMB [id number]) Physical Therapy Assessment Goals Three Impairment weakness Short Term Goal (STG) Improve Kizzy's LE strength by 1/2 grade throughout to improve her gait quality and improve her activity tolerance STG Duration 4 wks Mcc Goal (LTG) Kizzy to be independent with HEP and aquatic exercise program for long-term fitness and pain management One Impairment gait dysfunction Short Term Goal (STG) Kizzy will be able to ambulate with 30% reduction in her compensatory movements STG Duration 4 wks Consulting Sales Executive Goal (LTG) Kizzy will be able to ambulate with minimal to no limp with AFO LTG Duration 8 wks Two Impairment pain limiting activity Short Term Goal (STG) Kizzy will report 50% reduction in her right hip pain with usual activities STG Duration 4 weeks Consulting Sales Executive Goal (LTG) Kizzy will be able to resume usual activities including recently increased activity level with minimal to no pain LTG Duration 8 wks Assessment Summary Assessment Continued R hip pain, butter when using AFO, continued hip hiking with gait. Physical Therapy Plan Frequency and Duration Frequency of Treatment 2x/Week Duration of Treatment 8 wks Plan of Care Start Date 01/09/18 Plan of Care End Date 03/11/18 Next Visit Focus/Plan Next Note Type Treatment Note Next Visit Plan Follow up on heel lift for left, gait as tolerated. Please Sign and Return: I have reviewed this Plan of Care and certify that the skilled therapy services above are required to meet the patient?s needs. Physician Signature Date Printed Name and Credentials Clinical Instructor Signature Printed Name and Credentials
--- NOTE | 2018-01-18 13:30 | PT.OTN ---
Current Diagnoses Pain in right hip (01/18/18) Pain in left knee (01/18/18) Difficulty in walking, not elsewhere classified (01/18/18) Weakness (01/18/18) Physical Therapy Treatment Note PT-OP-A Visit Information Start: 12/13/17 10:14 Freq: Status: Active Protocol: Document 01/18/18 08:15 AMB (Rec: 01/18/18 13:25 AMB [email or web address]) Out-Patient Physical Therapy Visit Information Visit Information Visit Type Treatment Note Visit Note Visit Start Time 08:15 Visit Stop Time 09:10 Total Visit Minutes 45 Visit Number 1 Number of ESCORT BLIND Visits 0 Evaluation Information Evaluation Date 10/25/17 PT-OP-B Current Condition Start: 12/13/17 10:14 Freq: Status: Active Protocol: Document 01/09/18 10:33 SAK (Rec: 01/10/18 16:55 SAK [id number]) Current Condition History of Current Condition Onset Date 11/22/16 Current Complaints left knee pain due to compensation from right LE weakness History of Current Condition Patient underwent L45 laminectomy, microdiscectomy and decompression by Dr. Correa 11/28/17, with subsequent right LE weakness, atrophy, gait dysfunction. Post-op PT previously This round of PT (14 visits so far) has focused on left knee pain from compensatory movements due to right LE weakness. Now with minimal left knee pain especially after obtaining AFO for right LE ordered by Dr. Stewart. Patient also experiences pain in the sole of the foot with gait, wears gelt pad right foot. New order received from Dr. Stewart due to new c/o right sided hip/buttock pain. Patient has recently increased her walking and overall activity level due to improved gait with use of AFO but now is c/o above pain. Pain is worse without AFO and patient c/o concern she may always have to wear the AFO and this is very upsetting to her. 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 Future Testing and Treatments Planned Felicita Rice DO ordered an MRI lumbar sacral plexus with and without contrast scheduled for 01/14/18. PT-OP-C Subjective Start: 12/13/17 10:14 Freq: Status: Active Protocol: Document 01/18/18 08:15 AMB (Rec: 01/18/18 13:25 AMB [email or web address]) OP-PT Subjective Patient Comments Patient Comments Pt attends with continued right sided low back pain. Dr Ella Stewart thinks it is coming from the L5 nerve root per the patient. PT-OP-M Strength Start: 01/09/18 16:26 Freq: Status: Active Protocol: Document 01/09/18 10:33 SAK (Rec: 01/09/18 16:42 SAK [id number]) Hip Strength Hip Manual Muscle Testing Right Flexion (L2) 4+ Good+ Extension (S1) 4- Good- Abduction 4- Good- External Rotation 4 Good Internal Rotation 4+ Good+ Left Flexion (L2) 4+ Good+ Extension (S1) 4 Good Abduction 4 Good External Rotation 4 Good Internal Rotation 4+ Good+ Knee Strength Knee Manual Muscle Testing Right Flexion (S2) 4+ Good+ Extension (L3) 4 Good Left Flexion (S2) 4+ Good+ Extension (L3) 4+ Good+ Ankle/Foot Strength Ankle and Foot Manual Muscle Testing Right Dorsiflexion (L4) 3+ Fair+ Plantarflexion (S1) 3+ Fair+ Left Dorsiflexion (L4) 5 Normal Plantarflexion (S1) 4+ Good+ PT-OP-Q Treatments Start: 12/13/17 10:14 Freq: Status: Active Protocol: Document 01/18/18 08:15 AMB (Rec: 01/18/18 13:25 AMB [email or web address]) Cardio Equipment Bicycle (Upright) Duration (Minutes) 7 Resistance 7 Therapeutic Exercises Supine Exercises 4 Supine Exercise Name active hamstring stretch Reps/Minutes 30x4 3 Supine Exercise Name lower trunk rotation Reps/Minutes 2x10 Prone Exercises 2 Prone Exercise Name quadruped hip ext Side right Reps/Minutes 1x10 Manual Therapy Treatment Soft Tissue Mobilization 1 Body Location right IT band, glut med, piriformis Mobilization Type Strumming Trigger Point Release Intensity/Depth Moderate Body Position Prone Manual Traction Lower extremity Details R LE straight leg pull Body Position Supine Reps/Duration 30x3 PT-OP-R Modalities Start: 12/13/17 10:14 Freq: Status: Active Protocol: Document 01/18/18 08:15 AMB (Rec: 01/18/18 13:26 AMB [email or web address]) Hot Pack/Cold Pack Treatment Cold Pack Location R low back Patient Position Hooklying Treatment Duration (minutes) 10 Patient Tolerance Good PT-OP-T Assessment and Plan Start: 12/13/17 10:14 Freq: Status: Active Protocol: Document 01/18/18 08:15 AMB (Rec: 01/18/18 13:25 AMB [email or web address]) Physical Therapy Assessment Assessment Summary Assessment Pt continues to have right side pain, worse with lying prone than supine. No significant change with heel lift on the left, but she is still trying it. Physical Therapy Plan Frequency and Duration Frequency of Treatment 2x/Week Duration of Treatment 8 wks Plan of Care Start Date 01/09/18 Plan of Care End Date 03/11/18 Next Visit Focus/Plan Next Note Type Treatment Note Next Visit Plan Follow up on R back pain self care options. Please Sign and Return: I have reviewed this Plan of Care and certify that the skilled therapy services above are required to meet the patient?s needs. Physician Signature Date Printed Name and Credentials Clinical Instructor Signature Printed Name and Credentials
--- NOTE | 2018-01-26 15:05 | PT.OTN ---
Current Diagnoses Pain in right hip (01/26/18) Pain in left knee (01/26/18) Difficulty in walking, not elsewhere classified (01/26/18) Weakness (01/26/18) Physical Therapy Treatment Note PT-OP-A Visit Information Start: 12/13/17 10:14 Freq: Status: Active Protocol: Document 01/26/18 09:00 AMB (Rec: 01/26/18 09:19 AMB [id number]) Out-Patient Physical Therapy Visit Information Visit Information Visit Type Treatment Note Visit Note Visit Start Time 09:00 Visit Stop Time 09:45 Total Visit Minutes 45 Visit Number 17 Number of FOOD ORDER DELIVERY RUNNER Visits 0 Evaluation Information Evaluation Date 10/25/17 PT-OP-B Current Condition Start: 12/13/17 10:14 Freq: Status: Active Protocol: Document 01/09/18 10:33 SAK (Rec: 01/10/18 16:55 SAK [id number]) Current Condition History of Current Condition Onset Date 11/22/16 Current Complaints left knee pain due to compensation from right LE weakness History of Current Condition Patient underwent L45 laminectomy, microdiscectomy and decompression by Dr. Correa 11/28/17, with subsequent right LE weakness, atrophy, gait dysfunction. Post-op PT previously This round of PT (14 visits so far) has focused on left knee pain from compensatory movements due to right LE weakness. Now with minimal left knee pain especially after obtaining AFO for right LE ordered by Dr. Stewart. Patient also experiences pain in the sole of the foot with gait, wears gelt pad right foot. New order received from Dr. Stewart due to new c/o right sided hip/buttock pain. Patient has recently increased her walking and overall activity level due to improved gait with use of AFO but now is c/o above pain. Pain is worse without AFO and patient c/o concern she may always have to wear the AFO and this is very upsetting to her. 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 Future Testing and Treatments Planned Felicita Rice DO ordered an MRI lumbar sacral plexus with and without contrast scheduled for 01/14/18. PT-OP-C Subjective Start: 12/13/17 10:14 Freq: Status: Active Protocol: Document 01/26/18 09:00 AMB (Rec: 01/26/18 09:19 AMB [id number]) OP-PT Subjective Patient Comments Patient Comments Back pain has been better this week on the right, although Monday pt stayed in bed due to R low back, L knee pain. PT-OP-M Strength Start: 01/09/18 16:26 Freq: Status: Active Protocol: Document 01/09/18 10:33 SAK (Rec: 01/09/18 16:42 SAK [id number]) Hip Strength Hip Manual Muscle Testing Right Flexion (L2) 4+ Good+ Extension (S1) 4- Good- Abduction 4- Good- External Rotation 4 Good Internal Rotation 4+ Good+ Left Flexion (L2) 4+ Good+ Extension (S1) 4 Good Abduction 4 Good External Rotation 4 Good Internal Rotation 4+ Good+ Knee Strength Knee Manual Muscle Testing Right Flexion (S2) 4+ Good+ Extension (L3) 4 Good Left Flexion (S2) 4+ Good+ Extension (L3) 4+ Good+ Ankle/Foot Strength Ankle and Foot Manual Muscle Testing Right Dorsiflexion (L4) 3+ Fair+ Plantarflexion (S1) 3+ Fair+ Left Dorsiflexion (L4) 5 Normal Plantarflexion (S1) 4+ Good+ PT-OP-Q Treatments Start: 12/13/17 10:14 Freq: Status: Active Protocol: Document 01/26/18 09:00 AMB (Rec: 01/26/18 13:01 AMB [id number]) Cardio Equipment Bicycle (Upright) Duration (Minutes) 7 Resistance 7 Therapeutic Exercises Supine Exercises 4 Supine Exercise Name active hamstring stretch Reps/Minutes 30x4 2 Supine Exercise Name 90-90 hip flex isometric 1 Supine Exercise Name 90-90 hip flex isometric Reps/Minutes 5 Sidelying Exercises 4 Sidelying Exercise Name hip abduction Reps/Minutes 2x10 1 Sidelying Exercise Name side plank (modified kneeling/ forearm) Reps/Minutes 20x4 Manual Therapy Treatment Soft Tissue Mobilization 2 Body Location lumbar parapsinals Mobilization Type Cross-Friction Sustained Pressure Intensity/Depth Moderate Body Position Prone Comments L3-S1 Manual Traction Lower extremity Details R LE straight leg pull Body Position Supine Reps/Duration 30x3 PT-OP-R Modalities Start: 12/13/17 10:14 Freq: Status: Active Protocol: Document 01/18/18 08:15 AMB (Rec: 01/18/18 13:26 AMB [id number]) Hot Pack/Cold Pack Treatment Cold Pack Location R low back Patient Position Hooklying Treatment Duration (minutes) 10 Patient Tolerance Good PT-OP-T Assessment and Plan Start: 12/13/17 10:14 Freq: Status: Active Protocol: Document 01/26/18 09:00 AMB (Rec: 01/26/18 15:05 AMB [id number]) Physical Therapy Assessment Assessment Summary Assessment Decreased R lumbar pain but that continues to be pt's main limiting factor. Pt leaving for [place] in [place], so will focus remaining therapy on HEP and improving function/pain in the time that remains. Gait improved today. Physical Therapy Plan Next Visit Focus/Plan Next Note Type Treatment Note Next Visit Plan Progress core stability, decrease tension in R lumbosacral complex Please Sign and Return: I have reviewed this Plan of Care and certify that the skilled therapy services above are required to meet the patient?s needs. Physician Signature Date Printed Name and Credentials Clinical Instructor Signature Printed Name and Credentials
--- NOTE | 2018-02-02 09:45 | PT.OTN ---
Current Diagnoses Pain in right hip (02/02/18) Pain in left knee (02/02/18) Difficulty in walking, not elsewhere classified (02/02/18) Weakness (02/02/18) Physical Therapy Treatment Note PT-OP-A Visit Information Start: 12/13/17 10:14 Freq: Status: Active Protocol: Document 02/02/18 09:00 DCW (Rec: 02/02/18 09:44 DCW [id number]) Out-Patient Physical Therapy Visit Information Visit Information Visit Type Treatment Note Visit Note Visit Start Time 09:00 Visit Stop Time 09:45 Total Visit Minutes 45 Visit Number 18 Number of CATERING ATTENDANT Visits 0 Evaluation Information Evaluation Date 10/25/17 PT-OP-B Current Condition Start: 12/13/17 10:14 Freq: Status: Active Protocol: Document 01/09/18 10:33 SAK (Rec: 01/10/18 16:55 SAK [id number]) Current Condition History of Current Condition Onset Date 11/22/16 Current Complaints left knee pain due to compensation from right LE weakness History of Current Condition Patient underwent L45 laminectomy, microdiscectomy and decompression by Dr. Correa 11/28/17, with subsequent right LE weakness, atrophy, gait dysfunction. Post-op PT previously This round of PT (14 visits so far) has focused on left knee pain from compensatory movements due to right LE weakness. Now with minimal left knee pain especially after obtaining AFO for right LE ordered by Dr. Stewart. Patient also experiences pain in the sole of the foot with gait, wears gelt pad right foot. New order received from Dr. Stewart due to new c/o right sided hip/buttock pain. Patient has recently increased her walking and overall activity level due to improved gait with use of AFO but now is c/o above pain. Pain is worse without AFO and patient c/o concern she may always have to wear the AFO and this is very upsetting to her. 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 Future Testing and Treatments Planned Felicita Rice DO ordered an MRI lumbar sacral plexus with and without contrast scheduled for 01/14/18. PT-OP-C Subjective Start: 12/13/17 10:14 Freq: Status: Active Protocol: Document 02/02/18 09:00 DCW (Rec: 02/02/18 09:44 DCW [id number]) OP-PT Subjective Patient Comments Patient Comments Pt reports that her knees have been worse over the past week . She also reports she is always worse in the morning, so she is fairly sore today. PT-OP-Q Treatments Start: 12/13/17 10:14 Freq: Status: Active Protocol: Document 02/02/18 09:00 DCW (Rec: 02/02/18 09:44 DCW [id number]) Cardio Equipment Bicycle (Upright) Duration (Minutes) 7 Resistance 7 Therapeutic Exercises Sidelying Exercises 4 Sidelying Exercise Name hip abduction Reps/Minutes 2x10 1 Sidelying Exercise Name side plank (modified kneeling/ forearm) Reps/Minutes 20x4 Manual Therapy Treatment Soft Tissue Mobilization 2 Body Location lumbar parapsinals Mobilization Type Cross-Friction Sustained Pressure Intensity/Depth Moderate Body Position Prone Comments L3-S1 1 Body Location right IT band, glut med, piriformis Mobilization Type Strumming Trigger Point Release Intensity/Depth Moderate Body Position Prone Joint Mobilizations 1 Joint Distal Talofibular Direction Anterior Grade III Body Position Supine Manual Traction Lower extremity Details R LE straight leg pull Body Position Supine Reps/Duration 30x3 PT-OP-R Modalities Start: 12/13/17 10:14 Freq: Status: Active Protocol: Document 02/02/18 09:00 DCW (Rec: 02/02/18 09:44 DCW [id number]) Hot Pack/Cold Pack Treatment Cold Pack Location R low back Patient Position Hooklying Treatment Duration (minutes) 10 Patient Tolerance Good PT-OP-T Assessment and Plan Start: 12/13/17 10:14 Freq: Status: Active Protocol: Document 02/02/18 09:00 DCW (Rec: 02/02/18 09:44 DCW [id number]) Physical Therapy Assessment Assessment Summary Assessment Pt's distal fibula noticeably shifted backward, pt unsure if this positioning is normal or not. Able to shift it forward with joint mobilization. Physical Therapy Plan Frequency and Duration Frequency of Treatment 2x/Week Duration of Treatment 8 wks Plan of Care Start Date 01/09/18 Plan of Care End Date 03/11/18 Next Visit Focus/Plan Next Note Type Treatment Note Next Visit Plan Continue current POC
--- NOTE | 2018-02-15 13:14 | PT.OTN ---
Current Diagnoses Pain in right hip (02/13/18) Pain in left knee (02/13/18) Difficulty in walking, not elsewhere classified (02/13/18) Weakness (02/13/18) Physical Therapy Treatment Note PT-OP-A Visit Information Start: 12/13/17 10:14 Freq: Status: Active Protocol: Document 02/13/18 09:48 SAK (Rec: 02/13/18 10:02 SAK [id number]) Out-Patient Physical Therapy Visit Information Visit Information Visit Type Treatment Note Visit Note Visit Start Time 09:45 Visit Stop Time 10:30 Total Visit Minutes 45 Visit Number 20 Number of HEALTHCARE RECEPTIONIST Visits 0 PT-OP-B Current Condition Start: 12/13/17 10:14 Freq: Status: Active Protocol: Document 01/09/18 10:33 SAK (Rec: 01/10/18 16:55 SAK [id number]) Current Condition History of Current Condition Onset Date 11/22/16 Current Complaints left knee pain due to compensation from right LE weakness History of Current Condition Patient underwent L45 laminectomy, microdiscectomy and decompression by Dr. Correa 11/28/17, with subsequent right LE weakness, atrophy, gait dysfunction. Post-op PT previously This round of PT (14 visits so far) has focused on left knee pain from compensatory movements due to right LE weakness. Now with minimal left knee pain especially after obtaining AFO for right LE ordered by Dr. Stewart. Patient also experiences pain in the sole of the foot with gait, wears gelt pad right foot. New order received from Dr. Stewart due to new c/o right sided hip/buttock pain. Patient has recently increased her walking and overall activity level due to improved gait with use of AFO but now is c/o above pain. Pain is worse without AFO and patient c/o concern she may always have to wear the AFO and this is very upsetting to her. 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 Future Testing and Treatments Planned Felicita Rice DO ordered an MRI lumbar sacral plexus with and without contrast scheduled for 01/14/18. PT-OP-C Subjective Start: 12/13/17 10:14 Freq: Status: Active Protocol: Document 02/13/18 09:48 SAK (Rec: 02/13/18 10:02 SAK [id number]) OP-PT Subjective Patient Comments Patient Comments Overall better, pain easily exacerbated. Went to oliver filter operator to discuss lower profile orthotic which has now been ordered. Pain 4-6/10 over past week. States she feels mechanical traction helpful last session, may be interested in home unit. Will be gone on vacation for 3 weeks to see family, will do recheck appointment when she returns. PT-OP-M Strength Start: 01/09/18 16:26 Freq: Status: Active Protocol: Document 01/09/18 10:33 [facility] (Rec: 01/09/18 16:42 [facility] [id number]) Hip Strength Hip Manual Muscle Testing Right Flexion (L2) 4+ Good+ Extension (S1) 4- Good- Abduction 4- Good- External Rotation 4 Good Internal Rotation 4+ Good+ Left Flexion (L2) 4+ Good+ Extension (S1) 4 Good Abduction 4 Good External Rotation 4 Good Internal Rotation 4+ Good+ Knee Strength Knee Manual Muscle Testing Right Flexion (S2) 4+ Good+ Extension (L3) 4 Good Left Flexion (S2) 4+ Good+ Extension (L3) 4+ Good+ Ankle/Foot Strength Ankle and Foot Manual Muscle Testing Right Dorsiflexion (L4) 3+ Fair+ Plantarflexion (S1) 3+ Fair+ Left Dorsiflexion (L4) 5 Normal Plantarflexion (S1) 4+ Good+ PT-OP-Q Treatments Start: 12/13/17 10:14 Freq: Status: Active Protocol: Document 02/13/18 09:48 [facility] (Rec: 02/13/18 10:02 [facility] [id number]) Cardio Equipment Bicycle (Upright) Duration (Minutes) 7 Resistance 7 Therapeutic Exercises Sidelying Exercises 4 Sidelying Exercise Name hip abduction Reps/Minutes 2x10 1 Sidelying Exercise Name side plank (modified kneeling/ forearm) Reps/Minutes 20x4 Manual Therapy Treatment Soft Tissue Mobilization 2 Body Location lumbar parapsinals Mobilization Type Cross-Friction Sustained Pressure Intensity/Depth Moderate Body Position Prone Comments L3-S1 PT-OP-R Modalities Start: 12/13/17 10:14 Freq: Status: Active Protocol: Document 02/13/18 09:48 [facility] (Rec: 02/15/18 13:14 [facility] [id number]) Spinal Traction Traction Treatment Lumbar Method Mechanical Static Patient Position Hooklying Force Applied (Pounds) 40 Duration of Treatment (Minutes) 10 Traction Treatment Comment Reports decreased pain. PT-OP-T Assessment and Plan Start: 12/13/17 10:14 Freq: Status: Active Protocol: Document 02/13/18 09:48 [facility] (Rec: 02/15/18 13:14 [facility] [id number]) Physical Therapy Assessment Assessment Summary Assessment Kizzy tolerated traction well today so the home rental unit may be a idea for her. Physical Therapy Plan Frequency and Duration Frequency of Treatment 2x/Week Duration of Treatment 8 wks Plan of Care Start Date 01/09/18 Plan of Care End Date 03/11/18 Therapeutic Interventions Therapeutic Interventions Home Exercise Program Manual Therapy Neuromuscular Re-education Self-Care/Home Management Soft Tissue Mobilization Therapeutic Exercises Modalities Traction- Mechanical Other Therapeutic Interventions home rental unit for lumbar traction Next Visit Focus/Plan Next Note Type Re-Evaluation Next Visit Plan determine need for further PT. Order home lumbar traction unit.
--- NOTE | 2018-03-20 17:06 | PT.OTN ---
Current Diagnoses Pain in right hip (03/19/18) Pain in left knee (03/19/18) Difficulty in walking, not elsewhere classified (03/19/18) Weakness (03/19/18) Physical Therapy Treatment Note PT-OP-A Visit Information Start: 12/13/17 10:14 Freq: Status: Active Protocol: Document 03/19/18 09:45 SAK (Rec: 03/20/18 17:06 SAK [id number]) Out-Patient Physical Therapy Visit Information Visit Information Visit Type Re-Evaluation Visit Note Visit Start Time 09:45 Visit Stop Time 10:34 Total Visit Minutes 45 Visit Number 21 Number of INTERNATIONAL ORGANIZER Visits 0 Evaluation Information Evaluation Date 10/25/17 PT-OP-B Current Condition Start: 12/13/17 10:14 Freq: Status: Active Protocol: Document 01/09/18 10:33 SAK (Rec: 01/10/18 16:55 SAK [id number]) Current Condition History of Current Condition Onset Date 11/22/16 Current Complaints left knee pain due to compensation from right LE weakness History of Current Condition Patient underwent L45 laminectomy, microdiscectomy and decompression by Dr. Correa 11/28/17, with subsequent right LE weakness, atrophy, gait dysfunction. Post-op PT previously This round of PT (14 visits so far) has focused on left knee pain from compensatory movements due to right LE weakness. Now with minimal left knee pain especially after obtaining AFO for right LE ordered by Dr. Stewart. Patient also experiences pain in the sole of the foot with gait, wears gelt pad right foot. New order received from Dr. Stewart due to new c/o right sided hip/buttock pain. Patient has recently increased her walking and overall activity level due to improved gait with use of AFO but now is c/o above pain. Pain is worse without AFO and patient c/o concern she may always have to wear the AFO and this is very upsetting to her. 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 Future Testing and Treatments Planned Felicita Rice DO ordered an MRI lumbar sacral plexus with and without contrast scheduled for 01/14/18. PT-OP-C Subjective Start: 12/13/17 10:14 Freq: Status: Active Protocol: Document 03/19/18 09:45 SAK (Rec: 03/20/18 17:06 [facility] [id number]) OP-PT Subjective Patient Comments Patient Comments Returns from trip to see family in [facility]. States shortly after getting there her AFO broke. She had obtained a lower profile AFO so is now wearing that. States she was unable to walk in soft sand, needed to take about every other day off from activities which generally involved a lot of walking. Did some aquatic exercise and is going to resume that here now that she has returned. Is interested in obtaining a home traction unit as she found that helpful prior to her trip and would like to do again today. States she would like to complete her currently scheduled PT appointments then continue with HEP and aquatic exercise program independently. Patient Questionnaires Lower Extremity Functional Scale LEFS Score 61 LEFS Impairment 60 to 79% Impaired (Score 17- 31) Oswestry Low Back Index Oswestry Score 76 Oswestry Impairment 60 to 79% Impaired (Score 60- 79) OP-PT Pain Assessment Pain Assessment Grid Paper Pain Assessment Grid Completed Yes Location Bilateral Pain Location Details right piriformis, buttock Description- Other 4-8 Pain Aggravating Factors Activity Standing Walking PT-OP-M Strength Start: 01/09/18 16:26 Freq: Status: Active Protocol: Document 01/09/18 10:33 [facility] (Rec: 01/09/18 16:42 [facility] [id number]) Hip Strength Hip Manual Muscle Testing Right Flexion (L2) 4+ Good+ Extension (S1) 4- Good- Abduction 4- Good- External Rotation 4 Good Internal Rotation 4+ Good+ Left Flexion (L2) 4+ Good+ Extension (S1) 4 Good Abduction 4 Good External Rotation 4 Good Internal Rotation 4+ Good+ Knee Strength Knee Manual Muscle Testing Right Flexion (S2) 4+ Good+ Extension (L3) 4 Good Left Flexion (S2) 4+ Good+ Extension (L3) 4+ Good+ Ankle/Foot Strength Ankle and Foot Manual Muscle Testing Right Dorsiflexion (L4) 3+ Fair+ Plantarflexion (S1) 3+ Fair+ Left Dorsiflexion (L4) 5 Normal Plantarflexion (S1) 4+ Good+ PT-OP-Q Treatments Start: 12/13/17 10:14 Freq: Status: Active Protocol: Document 03/19/18 09:45 [facility] (Rec: 03/20/18 17:06 [facility] [id number]) Cardio Equipment Bicycle (Upright) Duration (Minutes) 10 Resistance 7 Therapeutic Exercises Supine Exercises 4 Supine Exercise Name active hamstring stretch Reps/Minutes 30x4 2 Supine Exercise Name 90-90 hip flex isometric Manual Therapy Treatment Soft Tissue Mobilization 2 Body Location lumbar paraspinals, right piriformis Mobilization Type Strumming Sustained Pressure Trigger Point Release Body Position Prone Comments L3-S1 piriformis PT-OP-R Modalities Start: 12/13/17 10:14 Freq: Status: Active Protocol: Document 03/19/18 09:45 [facility] (Rec: 03/20/18 17:06 [facility] [id number]) Spinal Traction Traction Treatment Lumbar Method Mechanical Static Patient Position Hooklying Force Applied (Pounds) 40 Duration of Treatment (Minutes) 10 Traction Treatment Comment Reports decreased pain. PT-OP-T Assessment and Plan Start: 12/13/17 10:14 Freq: Status: Active Protocol: Document 03/19/18 09:45 [facility] (Rec: 03/20/18 17:06 [facility] [id number]) Physical Therapy Assessment Goals Three Impairment weakness Short Term Goal (STG) Improve Kizzy's LE strength by 1/2 grade throughout to improve her gait quality and improve her activity tolerance STG Duration 4 wks Custodial Goal (LTG) Kizzy to be independent with HEP and aquatic exercise program for long-term fitness and pain management (goal progress) One Impairment gait dysfunction Short Term Goal (STG) Kizzy will be able to ambulate with 30% reduction in her compensatory movements STG Duration 4 wks Security Guard Goal (LTG) Kizzy will be able to ambulate with minimal to no limp with AFO (goal progress) LTG Duration 8 wks Two Impairment pain limiting activity Short Term Goal (STG) Kizzy will report 50% reduction in her right hip pain with usual activities STG Duration 4 weeks Security Guard Goal (LTG) Kizzy will be able to resume usual activities including recently increased activity level with minimal to no pain (goal progress) LTG Duration 8 wks Progress Towards Goals Progress Towards Goals Progressing Toward Goals Assessment Summary Assessment Recommend home lumbar traction unit; have signed prescription from physician so will send to vendor. Feel Kizzy would benefit from 3 further PT visits to progress her HEP, further work on her soft tissue mobility in her lumbar spine and piriformis as well as core stabilization and strengthening. Physical Therapy Plan Frequency and Duration Frequency of Treatment 3 visits Duration of Treatment 4 wks Plan of Care Start Date 03/19/18 Plan of Care End Date 04/19/18 Therapeutic Interventions Therapeutic Interventions Home Exercise Program Manual Therapy Neuromuscular Re-education Self-Care/Home Management Soft Tissue Mobilization Therapeutic Exercises Modalities Traction- Mechanical Other Therapeutic Interventions home rental unit for lumbar traction Next Visit Focus/Plan Next Note Type Treatment Note Next Visit Plan further patient education regarding use of home traction unit. Ther ex and manual therapy.
--- NOTE | 2018-03-20 17:06 | PT.OPPOC ---
Current Diagnoses Pain in right hip (03/19/18) Pain in left knee (03/19/18) Difficulty in walking, not elsewhere classified (03/19/18) Weakness (03/19/18) Provider Visit Care Team Role Provider Type Tayler Chavarria DO Attending Provider Physician Family Provider Primary Care Provider Specialty: Family Practice Address: [address] [place] [address], [address] Email: [email or web address] Plan Of Care PT-OP-T Assessment and Plan Start: 12/13/17 10:14 Freq: Status: Active Protocol: Document 03/19/18 09:45 SAK (Rec: 03/20/18 17:06 SAK [id number]) Physical Therapy Assessment Goals Three Impairment weakness Short Term Goal (STG) Improve Kizzy's LE strength by 1/2 grade throughout to improve her gait quality and improve her activity tolerance STG Duration 4 wks Mcc Goal (LTG) Kizzy to be independent with HEP and aquatic exercise program for long-term fitness and pain management (goal progress) One Impairment gait dysfunction Short Term Goal (STG) Kizzy will be able to ambulate with 30% reduction in her compensatory movements STG Duration 4 wks Evaluation Assistant Goal (LTG) Kizzy will be able to ambulate with minimal to no limp with AFO (goal progress) LTG Duration 8 wks Two Impairment pain limiting activity Short Term Goal (STG) Kizzy will report 50% reduction in her right hip pain with usual activities STG Duration 4 weeks Evaluation Assistant Goal (LTG) Kizzy will be able to resume usual activities including recently increased activity level with minimal to no pain (goal progress) LTG Duration 8 wks Progress Towards Goals Progress Towards Goals Progressing Toward Goals Assessment Summary Assessment Recommend home lumbar traction unit; have signed prescription from physician so will send to vendor. Feel Kizzy would benefit from 3 further PT visits to progress her HEP, further work on her soft tissue mobility in her lumbar spine and piriformis as well as core stabilization and strengthening. Physical Therapy Plan Frequency and Duration Frequency of Treatment 3 visits Duration of Treatment 4 wks Plan of Care Start Date 03/19/18 Plan of Care End Date 04/19/18 Therapeutic Interventions Therapeutic Interventions Home Exercise Program Manual Therapy Neuromuscular Re-education Self-Care/Home Management Soft Tissue Mobilization Therapeutic Exercises Modalities Traction- Mechanical Other Therapeutic Interventions home rental unit for lumbar traction Next Visit Focus/Plan Next Note Type Treatment Note Next Visit Plan further patient education regarding use of home traction unit. Ther ex and manual therapy. Plan of Care Dates Plan of Care Start Date 03/19/18 Plan of Care End Date 04/19/18 Please Sign and Return: I have reviewed this Plan of Care and certify that the skilled therapy services above are required to meet the patient?s needs. Physician Signature Date Printed Name and Credentials Clinical Instructor Signature Printed Name and Credentials
--- NOTE | 2018-03-26 12:52 | PT.OTN ---
Current Diagnoses Pain in right hip (03/26/18) Pain in left knee (03/26/18) Difficulty in walking, not elsewhere classified (03/26/18) Weakness (03/26/18) Physical Therapy Treatment Note PT-OP-A Visit Information Start: 12/13/17 10:14 Freq: Status: Active Protocol: Document 03/26/18 09:45 AMB (Rec: 03/26/18 09:52 AMB [id number]) Out-Patient Physical Therapy Visit Information Visit Information Visit Type Treatment Note Visit Note Visit Start Time 09:45 Visit Stop Time 10:34 Total Visit Minutes 45 Visit Number 22 Number of CLIENT ENGAGEMENT MANAGER Visits 0 Evaluation Information Evaluation Date 10/25/17 PT-OP-B Current Condition Start: 12/13/17 10:14 Freq: Status: Active Protocol: Document 01/09/18 10:33 SAK (Rec: 01/10/18 16:55 SAK [id number]) Current Condition History of Current Condition Onset Date 11/22/16 Current Complaints left knee pain due to compensation from right LE weakness History of Current Condition Patient underwent L45 laminectomy, microdiscectomy and decompression by Dr. Correa 11/28/17, with subsequent right LE weakness, atrophy, gait dysfunction. Post-op PT previously This round of PT (14 visits so far) has focused on left knee pain from compensatory movements due to right LE weakness. Now with minimal left knee pain especially after obtaining AFO for right LE ordered by Dr. Stewart. Patient also experiences pain in the sole of the foot with gait, wears gelt pad right foot. New order received from Dr. Stewart due to new c/o right sided hip/buttock pain. Patient has recently increased her walking and overall activity level due to improved gait with use of AFO but now is c/o above pain. Pain is worse without AFO and patient c/o concern she may always have to wear the AFO and this is very upsetting to her. 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 Future Testing and Treatments Planned Felicita Rice DO ordered an MRI lumbar sacral plexus with and without contrast scheduled for 01/14/18. PT-OP-C Subjective Start: 12/13/17 10:14 Freq: Status: Active Protocol: Document 03/26/18 09:45 AMB (Rec: 03/26/18 09:52 AMB [id number]) OP-PT Subjective Patient Comments Patient Comments Waiting for AFO to be fixed, so feels gait is more uneven with current AFO. Painful yesterday on the right side. PT-OP-M Strength Start: 01/09/18 16:26 Freq: Status: Active Protocol: Document 01/09/18 10:33 SAK (Rec: 01/09/18 16:42 SAK [id number]) Hip Strength Hip Manual Muscle Testing Right Flexion (L2) 4+ Good+ Extension (S1) 4- Good- Abduction 4- Good- External Rotation 4 Good Internal Rotation 4+ Good+ Left Flexion (L2) 4+ Good+ Extension (S1) 4 Good Abduction 4 Good External Rotation 4 Good Internal Rotation 4+ Good+ Knee Strength Knee Manual Muscle Testing Right Flexion (S2) 4+ Good+ Extension (L3) 4 Good Left Flexion (S2) 4+ Good+ Extension (L3) 4+ Good+ Ankle/Foot Strength Ankle and Foot Manual Muscle Testing Right Dorsiflexion (L4) 3+ Fair+ Plantarflexion (S1) 3+ Fair+ Left Dorsiflexion (L4) 5 Normal Plantarflexion (S1) 4+ Good+ PT-OP-Q Treatments Start: 12/13/17 10:14 Freq: Status: Active Protocol: Document 03/26/18 09:45 AMB (Rec: 03/26/18 12:51 AMB [id number]) Cardio Equipment Bicycle (Upright) Duration (Minutes) 10 Resistance 7 Therapeutic Exercises Supine Exercises 4 Supine Exercise Name active hamstring stretch Reps/Minutes 30x4 3 Supine Exercise Name piriformis stetch Reps/Minutes 30x2 Manual Therapy Treatment Soft Tissue Mobilization 2 Body Location lumbar paraspinals, right piriformis Mobilization Type Strumming Sustained Pressure Trigger Point Release Body Position Prone Comments L3-S1 piriformis Manual Traction Lower extremity Details R LE straight leg pull Body Position Supine Reps/Duration 30x3 PT-OP-R Modalities Start: 12/13/17 10:14 Freq: Status: Active Protocol: Document 03/26/18 09:45 AMB (Rec: 03/26/18 12:51 AMB [id number]) Spinal Traction Traction Treatment Lumbar Method Mechanical Static Patient Position Hooklying Force Applied (Pounds) 45 Duration of Treatment (Minutes) 10 Traction Treatment Comment Reports decreased pain. PT-OP-T Assessment and Plan Start: 12/13/17 10:14 Freq: Status: Active Protocol: Document 03/26/18 09:45 AMB (Rec: 03/26/18 12:51 AMB [id number]) Physical Therapy Assessment Assessment Summary Assessment Pt has returned to aquatic therapy independently. Did have one down day on Monday, concerned her replacement AFO is making her walk differently which is impacting her back. Physical Therapy Plan Frequency and Duration Frequency of Treatment 3 visits Duration of Treatment 4 wks Plan of Care Start Date 03/19/18 Plan of Care End Date 04/19/18 Therapeutic Interventions Therapeutic Interventions Home Exercise Program Manual Therapy Neuromuscular Re-education Self-Care/Home Management Soft Tissue Mobilization Therapeutic Exercises Modalities Traction- Mechanical Other Therapeutic Interventions home rental unit for lumbar traction Next Visit Focus/Plan Next Note Type Treatment Note Next Visit Plan further patient education regarding use of home traction unit. Ther ex and manual therapy.
--- NOTE | 2018-04-06 16:35 | PT.OTN ---
Current Diagnoses Pain in right hip (04/06/18) Pain in left knee (04/06/18) Difficulty in walking, not elsewhere classified (04/06/18) Weakness (04/06/18) Physical Therapy Treatment Note PT-OP-A Visit Information Start: 12/13/17 10:14 Freq: Status: Active Protocol: Document 04/06/18 08:14 SAK (Rec: 04/06/18 08:36 SAK [id number]) Out-Patient Physical Therapy Visit Information Visit Information Visit Type Treatment Note Visit Note Visit Start Time 09:45 Visit Stop Time 10:34 Total Visit Minutes 55 Visit Number 23 Number of ON SITE SOIL EVALUATOR Visits 0 Evaluation Information Evaluation Date 10/25/17 PT-OP-B Current Condition Start: 12/13/17 10:14 Freq: Status: Active Protocol: Document 01/09/18 10:33 SAK (Rec: 01/10/18 16:55 SAK [id number]) Current Condition History of Current Condition Onset Date 11/22/16 Current Complaints left knee pain due to compensation from right LE weakness History of Current Condition Patient underwent L45 laminectomy, microdiscectomy and decompression by Dr. Correa 11/28/17, with subsequent right LE weakness, atrophy, gait dysfunction. Post-op PT previously This round of PT (14 visits so far) has focused on left knee pain from compensatory movements due to right LE weakness. Now with minimal left knee pain especially after obtaining AFO for right LE ordered by Dr. Stewart. Patient also experiences pain in the sole of the foot with gait, wears gelt pad right foot. New order received from Dr. Stewart due to new c/o right sided hip/buttock pain. Patient has recently increased her walking and overall activity level due to improved gait with use of AFO but now is c/o above pain. Pain is worse without AFO and patient c/o concern she may always have to wear the AFO and this is very upsetting to her. 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 Future Testing and Treatments Planned Felicita Rice DO ordered an MRI lumbar sacral plexus with and without contrast scheduled for 01/14/18. PT-OP-C Subjective Start: 12/13/17 10:14 Freq: Status: Active Protocol: Document 04/06/18 08:14 SAK (Rec: 04/06/18 08:36 [facility] [id number]) OP-PT Subjective Patient Comments Patient Comments Less pain with new AFO, has to drive without it for long trips due to limiting plantarflexion, too uncomfortable. Using tennis ball for deep tissue work, had niece do leg pull, stretches helpful. Has not recieved home traction unit yet. PT-OP-M Strength Start: 01/09/18 16:26 Freq: Status: Active Protocol: Document 01/09/18 10:33 [facility] (Rec: 01/09/18 16:42 [facility] [id number]) Hip Strength Hip Manual Muscle Testing Right Flexion (L2) 4+ Good+ Extension (S1) 4- Good- Abduction 4- Good- External Rotation 4 Good Internal Rotation 4+ Good+ Left Flexion (L2) 4+ Good+ Extension (S1) 4 Good Abduction 4 Good External Rotation 4 Good Internal Rotation 4+ Good+ Knee Strength Knee Manual Muscle Testing Right Flexion (S2) 4+ Good+ Extension (L3) 4 Good Left Flexion (S2) 4+ Good+ Extension (L3) 4+ Good+ Ankle/Foot Strength Ankle and Foot Manual Muscle Testing Right Dorsiflexion (L4) 3+ Fair+ Plantarflexion (S1) 3+ Fair+ Left Dorsiflexion (L4) 5 Normal Plantarflexion (S1) 4+ Good+ PT-OP-Q Treatments Start: 12/13/17 10:14 Freq: Status: Active Protocol: Document 04/06/18 08:14 [facility] (Rec: 04/06/18 08:36 [facility] [id number]) Cardio Equipment Bicycle (Upright) Duration (Minutes) 10 Resistance 7 Gym Equipment Shuttle Balance 1 Details bal and weight shift Reps/Duration 10 min Comments front/back, side to side Therapeutic Exercises Supine Exercises 4 Supine Exercise Name active hamstring stretch Reps/Minutes 30x4 3 Supine Exercise Name piriformis stetch Reps/Minutes 30x2 2 Supine Exercise Name 90-90 hip flex isometric Manual Therapy Treatment Soft Tissue Mobilization 2 Body Location lumbar paraspinals, right piriformis Mobilization Type Strumming Sustained Pressure Trigger Point Release Body Position Prone Comments L3-S1 piriformis Manual Traction Lower extremity Details R LE straight leg pull Body Position Supine Reps/Duration 30x3 PT-OP-R Modalities Start: 12/13/17 10:14 Freq: Status: Active Protocol: Document 04/06/18 08:14 [facility] (Rec: 04/06/18 16:34 [facility] [id number]) Hot Pack/Cold Pack Treatment Cold Pack Location R low back Patient Position Hooklying Treatment Duration (minutes) 10 Patient Tolerance Good Comments after pelvic traction Spinal Traction Traction Treatment Lumbar Method Mechanical Static Patient Position Hooklying Force Applied (Pounds) 52 Duration of Treatment (Minutes) 10 Traction Treatment Comment Reports decreased pain. PT-OP-T Assessment and Plan Start: 12/13/17 10:14 Freq: Status: Active Protocol: Document 04/06/18 08:14 [facility] (Rec: 04/06/18 16:34 [facility] [id number]) Physical Therapy Assessment Goals Three Impairment weakness Short Term Goal (STG) Improve Kizzy's LE strength by 1/2 grade throughout to improve her gait quality and improve her activity tolerance STG Duration 4 wks Mcfp Goal (LTG) Kizzy to be independent with HEP and aquatic exercise program for long-term fitness and pain management (goal progress) One Impairment gait dysfunction Short Term Goal (STG) Kizzy will be able to ambulate with 30% reduction in her compensatory movements STG Duration 4 wks Mcfp Goal (LTG) Kizzy will be able to ambulate with minimal to no limp with AFO (goal progress) LTG Duration 8 wks Two Impairment pain limiting activity Short Term Goal (STG) Kizzy will report 50% reduction in her right hip pain with usual activities STG Duration 4 weeks Mcfp Goal (LTG) Kizzy will be able to resume usual activities including recently increased activity level with minimal to no pain (goal progress) LTG Duration 8 wks Assessment Summary Assessment Due to nerve damage and altered biomechanics feel patient's pain likely to persist. Decreases with ther ex especially aquatic exercise , as well as with use of traction; will benefit highly from use of home traction unit . Physical Therapy Plan Frequency and Duration Frequency of Treatment 3 visits Duration of Treatment 4 wks Plan of Care Start Date 03/19/18 Plan of Care End Date 04/19/18 Therapeutic Interventions Therapeutic Interventions Home Exercise Program Manual Therapy Neuromuscular Re-education Self-Care/Home Management Soft Tissue Mobilization Therapeutic Exercises Modalities Traction- Mechanical Other Therapeutic Interventions home rental unit for lumbar traction Next Visit Focus/Plan Next Note Type Treatment Note Next Visit Plan Assure independence with use of Home traction unit for home use. Problem solve, modify, or progress HEP as indicated.
--- NOTE | 2018-04-10 11:14 | PT.OTN ---
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 Correa 11/28/17, with subsequent right LE weakness, atrophy, gait dysfunction. Post-op PT previously This round of PT (14 visits so far) has focused on left knee pain from compensatory movements due to right LE weakness. Now with minimal left knee pain especially after obtaining AFO for right LE ordered by Dr. Stewart. Patient also experiences pain in the sole of the foot with gait, wears gelt pad right foot. New order received from Dr. Stewart due to new c/o right sided hip/buttock pain. Patient has recently increased her walking and overall activity level due to improved gait with use of AFO but now is c/o above pain. Pain is worse without AFO and patient c/o concern she may always have to wear the AFO and this is very upsetting to her. 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 Future Testing and Treatments Planned Felicita Rice DO ordered an MRI lumbar sacral plexus with and without contrast scheduled for 01/14/18. PT-OP-C Subjective Start: 12/13/17 10:14 Freq: Status: Active Protocol: Document 04/09/18 09:45 SAK (Rec: 04/10/18 11:14 [facility] [id number]) OP-PT Subjective Patient Comments Patient Comments Agreeable to discharge from PT this date, feels comfortable with HEP and aquatic ex program. Hopeful to receive home traction unit soon as finds it very helpful in decreasing her pain PT-OP-M Strength Start: 01/09/18 16:26 Freq: Status: Active Protocol: Document 01/09/18 10:33 [facility] (Rec: 01/09/18 16:42 [facility] [id number]) Hip Strength Hip Manual Muscle Testing Right Flexion (L2) 4+ Good+ Extension (S1) 4- Good- Abduction 4- Good- External Rotation 4 Good Internal Rotation 4+ Good+ Left Flexion (L2) 4+ Good+ Extension (S1) 4 Good Abduction 4 Good External Rotation 4 Good Internal Rotation 4+ Good+ Knee Strength Knee Manual Muscle Testing Right Flexion (S2) 4+ Good+ Extension (L3) 4 Good Left Flexion (S2) 4+ Good+ Extension (L3) 4+ Good+ Ankle/Foot Strength Ankle and Foot Manual Muscle Testing Right Dorsiflexion (L4) 3+ Fair+ Plantarflexion (S1) 3+ Fair+ Left Dorsiflexion (L4) 5 Normal Plantarflexion (S1) 4+ Good+ PT-OP-Q Treatments Start: 12/13/17 10:14 Freq: Status: Active Protocol: Document 04/09/18 09:45 [facility] (Rec: 04/10/18 11:14 [facility] [id number]) Cardio Equipment Bicycle (Upright) Duration (Minutes) 10 Resistance 7 Gym Equipment Shuttle Balance 1 Details bal and weight shift Reps/Duration 10 min Comments front/back, side to side Therapeutic Exercises Supine Exercises 4 Supine Exercise Name active hamstring stretch Reps/Minutes 30x4 3 Supine Exercise Name piriformis stetch Reps/Minutes 30x2 2 Supine Exercise Name 90-90 hip flex isometric 1 Supine Exercise Name 90-90 hip flex isometric Reps/Minutes 5 Prone Exercises 2 Prone Exercise Name quadruped hip ext Side right Reps/Minutes 1x10 1 Prone Exercise Name Hip extension Side bilateral Resistance 1# Equipment Used Ankle weight Reps/Minutes 10 Comments with pillow under hips Sidelying Exercises 4 Sidelying Exercise Name hip abduction Reps/Minutes 2x10 3 Sidelying Exercise Name QL stretch Side right Reps/Minutes 30x3 2 Sidelying Exercise Name Hip Adduction Side bilateral Resistance 1# Equipment Used ankle weight Reps/Minutes 10 1 Sidelying Exercise Name side plank (modified kneeling/ forearm) Reps/Minutes 20x4 Sitting Exercises 2 Sitting Exercise Name hamstring curl Side bilateral Resistance 30 Comments 20# unilateral 1 Sitting Exercise Name Baps board Side right Equipment Used Baps Reps/Minutes 10 ea direction Manual Therapy Treatment Soft Tissue Mobilization 2 Body Location lumbar paraspinals, right piriformis Mobilization Type Strumming Sustained Pressure Trigger Point Release Body Position Prone Comments L3-S1 piriformis PT-OP-R Modalities Start: 12/13/17 10:14 Freq: Status: Active Protocol: Document 04/09/18 09:45 [facility] (Rec: 04/10/18 11:14 [facility] [id number]) Hot Pack/Cold Pack Treatment Cold Pack Location R low back Patient Position Hooklying Treatment Duration (minutes) 10 Patient Tolerance Good Comments after pelvic traction Spinal Traction Traction Treatment Lumbar Method Mechanical Static Patient Position Hooklying Force Applied (Pounds) 52 Duration of Treatment (Minutes) 10 Traction Treatment Comment Reports decreased pain. PT-OP-T Assessment and Plan Start: 12/13/17 10:14 Freq: Status: Active Protocol: Document 04/09/18 09:45 [facility] (Rec: 04/10/18 11:14 [facility] [id number]) Physical Therapy Assessment Goals Three Impairment weakness Short Term Goal (STG) Improve Kizzy's LE strength by 1/2 grade throughout to improve her gait quality and improve her activity tolerance (goal mostly achieved) STG Duration 4 wks Steamship Agent Goal (LTG) Kizzy to be independent with HEP and aquatic exercise program for long-term fitness and pain management (goal achieved) One Impairment gait dysfunction Short Term Goal (STG) Kizzy will be able to ambulate with 30% reduction in her compensatory movements STG Duration 4 wks Snf Goal (LTG) Kizzy will be able to ambulate with minimal to no limp with AFO (goal progress) LTG Duration 8 wks Two Impairment pain limiting activity Short Term Goal (STG) Kizzy will report 50% reduction in her right hip pain with usual activities ( goal progress) STG Duration 4 weeks Snf Goal (LTG) Kizzy will be able to resume usual activities including recently increased activity level with minimal to no pain (goal progress) LTG Duration 8 wks Progress Towards Goals Progress Comments Kizzy made good progress toward goals, but due to nerve damage unable to fully achieve. She continues to ambulate with AFO but still has compensatory movements which contribute to her pain; pain increases with activity. She benefits highly from the use of a home traction unit and have submitted information for her to receive one; she is safe and independent with the use of the traction unit. Assessment Summary Assessment Progress has plateaued at this time, patient will be discharged to independent HEP and aquatic exercise program, again hopeful for patient to receive home traction unit as well. Physical Therapy Plan Discharge Physical Therapy Discharge Reasons Plateau in Progress Discharge Comments May benefit from further PT in the future.
== END 2018-05-25 15:27 ==
LOC: PHYS 09:45
PROVIDERS: Family Provider Family Medicine; PCP Family Medicine; Visit Provider Family Medicine
DX: M25.562 Pain in left knee (principal); R26.2 Difficulty in walking, not elsewhere classified; R53.1 Weakness; M25.551 Pain in right hip
CPT/HCPCS: 97010; 97012; 97110; 97112; 97116; 97140

== ENCOUNTER → 2018-06-04 11:40 | Outpatient (CLI) | payer OTHER, SELFPAY ==
--- NOTE | 2018-06-04 11:41 | DI.US.S_ITS ---
PROCEDURE: US PELVIC COMPLETE INDICATIONS: FOLLOW UP LEFT OVARIAN CYST TECHNIQUE: Real-time scanning was performed of the pelvic organs, with image documentation. Additional endovaginal scanning was necessary due to incomplete visualization of the adnexal and endometrial structures by transabdominal scanning. COMPARISON: [facility], CT, CT ABDOMEN PELVIS W CON, 02/14/2018, 2:44. [facility], US, US PELVIC COMPLETE, 02/14/2018, 5:18. FINDINGS: Transabdominal scanning: A mild amount of free pelvic fluid is seen, which is considered to be within physiologic limits. Scanning of the kidneys is limited, with only the superior poles seen. There is no hydronephrosis. Endovaginal scanning: Uterus: Uterus is normal in size at 7.1 x 3.9 x 1.3 cm. The endometrium measures 4 mm in combined thickness. An IUD is seen. On these images, there does appear to be an echogenic focus seen within the posterior aspect of the uterus. Ovaries: The right ovary is surgically absent. The left ovary measures 5.7 x 2.2 x 4.3 cm. The previously seen hemorrhagic cyst has resolved. No adnexal masses are seen. IMPRESSION: Resolution of the previously seen left ovarian hemorrhagic cyst. An IUD is seen. There is an echogenic focus seen within the posterior aspect uterus, which may represent a portion of the IUD itself. However, on the prior CT, the IUD demonstrates a normal location. Dictated by: Neno Ruiz M.D. on 06/04/2018 at 11:59 Approved by: Neno Ruiz M.D. on 06/04/2018 at 12:01
== END ==
PROVIDERS: Family Provider Family Medicine; PCP Family Medicine; Visit Provider Family Medicine
DX: N83.202 Unspecified ovarian cyst, left side (principal); Z97.5 Presence of (intrauterine) contraceptive device
CPT/HCPCS: 76830; 76856

== ENCOUNTER → 2018-10-26 09:14 | Outpatient (CLI) | payer OTHER, SELFPAY ==
[2018-10-26 10:37] LABS: Vitamin D 25 Hydroxy (D3) 36.4 ng/mL (30.0-100.0)
== END ==
PROVIDERS: PCP Family Medicine; Visit Provider Family Medicine
DX: Z13.21 Encounter for screening for nutritional disorder (principal)
CPT/HCPCS: 36415; 82306